=== PATIENT | female | born 1935 | race Caucasian/White ===

== ENCOUNTER 2024-12-13 18:59 | Emergency (ER) | payer MEDICARE, OTHER, SELFPAY ==
[2024-12-13 19:02] VITALS: BP 158/80; PULSE 79; TEMP 36.4; O2SAT 99; BMI 24.7
[2024-12-13 19:03] VITALS: O2SAT 99
--- NOTE | 2024-12-13 19:06 | ECG_ITS ---
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 Measurements Intervals [place] Rate: 75 P: -66 MN: 190 QRS: 21 QRSD: 88 T: 78 QT: 390 QTc: 418 Interpretive Statements ECTOPIC ATRIAL RHYTHM abnormal ECG No previous ECG available for comparison Electronically Signed On 12-14-2024 6:34:08 EDT by KENA CHURCHILL M.D.
--- NOTE | 2024-12-13 19:09 | ED.FALL1 ---
Documented by User: KYLIE Zamora 12/13/24 20:54 HPI HPI - Fall General Chief Complaint: Fall Stated Complaint: FALL Time Seen by Provider: 12/13/24 19:05 Source: patient Mode of arrival: ambulance History of Present Illness HPI Narrative: Patient is an 89-year-old female who presents to the ER for evaluation of injuries from a fall. Patient states she went to [facility] earlier today and was at the [facility] when she was walking and tripped falling striking her right elbow and face. She denies any loss of consciousness. Patient states she has felt shaky all day slightly off balance but denies any room spinning or dizziness. Patient has tenderness to the tip of her right elbow with an abrasion noted. She has a small abrasion to her left lower lip and left maxillary region where she fell. She has dentures and denies any intraoral pain. Patient denies any blood thinner use. She sees Dr. Jennie Ybarra in [place]. Patient states she did not eat breakfast or lunch today and only had 2 sips of her nonalcoholic beer before she tripped and fell. Patient arrived with c-collar in place but denies complaint of neck pain. Pt reports cardiac echo earlier in the year that Looked good. complaint: Reports fall Fall from: Reports standing Fall witnessed: Reports yes, by bystander Place fall occurred: Reports other ([facility]) Loss of consciousness: none Prolonged down time: Reports no Symptoms prior to fall: Reports none (Pt reports tripped on her feet. ) Context: Reports tripped/slipped Location of injury: Reports face and other (right Elbow) Location of injury - extremities: Right: elbow Severity: mild Quality: Reports aching Associated symptoms (after fall): Reports denies Related Data Home Medications ?Medication ?Instructions ?Recorded ?Confirmed atorvastatin 20 mg tablet 20 mg PO DAILY 12/13/24 12/13/24 bupropion HCl 300 mg 24 hr tablet, 300 mg PO DAILY 12/13/24 12/13/24 extended release diltiazem HCl 240 mg 240 mg PO DAILY 12/13/24 12/13/24 capsule,extended release 24 hr duloxetine 30 mg capsule,delayed 30 mg PO DAILY 12/13/24 12/13/24 release duloxetine 60 mg capsule,delayed 60 mg PO DAILY 12/13/24 12/13/24 release magnesium oxide 400 mg (241.3 mg 400 mg PO DAILY 12/13/24 12/13/24 magnesium) tablet Allergies Allergy/AdvReac Type Severity Reaction Status Date / Time Penicillins Allergy Unknown rash Verified 12/13/24 19:26 Opioid HPI Opioid Management Most Recent Pain and Opioid Data: Last Pain Scale 3 Today, 19:02 Review of Systems ROS Constitutional Denies: fever or chills Eyes Denies: change in vision or blurry vision Ears, nose, mouth, and throat Denies: throat pain, neck pain or throat swelling Cardiovascular Denies: chest pain or palpitations Respiratory Denies: shortness of breath or cough Gastrointestinal Denies: abdominal pain, nausea or vomiting Genitourinary Denies: painful urination or urinary frequency Musculoskeletal Reports: extremity pain (right elbow pain s/p fall); Denies: back pain or neck pain Integumentary/Breast Denies: rash, itching, redness or skin pain Neurological Denies: headache, numbness in extremities or weakness in extremities Psychiatric Denies: anxiety Allergic/Immunologic Denies: hives PFSH PFSH Social History Little interest or pleasure in doing things: not at all Feeling down, depressed, or hopeless: nearly every day Exam Narrative Exam Narrative: Nurses note and vital signs reviewed and patient is not hypoxic. General: The patient appears well and in no apparent distress. Patient is resting comfortably on cart. GCS = 15. Skin: Warm, dry, no pallor noted. Nonbleeding abrasion right elbow, small abrasion to left lower lip does not involve the vermilion border. The left maxillary area has a small abrasion overlying the mid lateral zygomatic process Head: Normocephalic, abrasion and swelling left maxilla. left lower lip. Neck: Supple, trachea mid-line, no tenderness, no lymphadenopathy. Full ROM and no cervical spinal tenderness. The patient has no step-offs or crepitus noted Eyes: PERRLA, EOMI, Pt report remote injury to optic nerve reflex ENT: TM's clear, no hemotympanum detected, no blood in posterior oropharynx, Dentures upper and lower. Cardiovascular: Regular Rate and Rhythm, 2+ SNOW Respiratory: Patient is in no distress, no accessory muscle use, lungs are clear to auscultation, no wheezing, rales or rhonchi Chest Wall: no tenderness, no flail chest, contusion, abrasion, or signs of trauma. Back: Back has no evidence of trauma, including contusion, abrasion, swelling or ecchymosis. The patient had no evidence of step-offs or creptitace noted. No tenderness to palpation. Negative straight leg raise bilaterally. Musculoskeletal: normal ROM, only localized tenderness to right olecranon process, no swelling. Pulses at femoral, DP, PT, and popiteal were 2+ bilaterally. Moves all four extremities in all modalities with 5/5 strength. GI: Normal bowel sounds, no tenderness to palpation, no masses appreciated. No rebound, guarding, or rigidity noted. 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 Psychiatric: Cooperative Constitutional Vital Signs, click to edit/add: Last Vital Signs Temp 97.5 F L 12/13/24 19:02 Pulse 79 12/13/24 19:02 Resp 18 12/13/24 19:02 BP 148/75 H 12/13/24 19:13 Pulse Ox 98 12/13/24 19:13 O2 Del Method Room Air 12/13/24 19:02 Course Vital Signs Vital signs: Vital Signs Temperature 97.5 F L 12/13/24 19:02 Pulse Rate 79 12/13/24 19:02 Respiratory Rate 18 12/13/24 19:02 Blood Pressure 158/80 H 12/13/24 19:02 Pulse Oximetry 99 12/13/24 19:02 Oxygen Delivery Method Room Air 12/13/24 19:02 Temperature 97.5 F L 12/13/24 19:02 Pulse Rate 79 12/13/24 19:02 Respiratory Rate 18 12/13/24 19:02 Blood Pressure 148/75 H 12/13/24 19:13 Pulse Oximetry 98 12/13/24 19:13 Oxygen Delivery Method Room Air 12/13/24 19:02 MDM - Fall MDM Narrative Medical decision making narrative: Patient presents EMS with c-collar she has no cervical spine tenderness and denies any radicular pain into her upper extremities. She has a isolated facial injury from fall on the left maxillary area dentures noted without evidence of fracture. c-collar removed. Patient agreeable to imaging studies to evaluate her injuries we discussed her feeling shaky all day and discussed that she had not eaten. Patient states some days food does not taste good and she was waiting to eat at the [facility]. Patient given 1 L IV fluids. Tetanus shot was updated and bacitracin applied to abrasions. Lab Data Labs: Lab Results 12/13/24 12/13/24 Range/Units 19:15 20:20 WBC 9.0 (4.0-11.0) 10^3/uL RBC 3.51 L (4.20-5.40) 10^6/uL Hgb 11.4 L (12.0-16.0) g/dL Hct 34.1 L (36.0-48.0) % MCV 97.2 (81.0-99.0) fL MCH 32.5 (26.7-34.0) pg MCHC 33.4 (29.9-35.2) g/dL RDW 13.5 (11.0-15.0) % Plt Count 221 (150-450) 10^3/uL MPV 11.4 (9.5-13.5) fL Neut % (Auto) 76.2 H (43.0-75.0) % Lymph % (Auto) 15.7 L (20.5-60.0) % [place] % (Auto) 6.3 (1.7-12.0) % Eos % (Auto) 0.9 (0.9-7.0) % Baso % (Auto) 0.6 (0.2-2.0) % Neut # (Auto) 6.9 H (1.4-6.5) 10^3/uL Lymph # (Auto) 1.4 (1.2-3.8) 10^3/uL [place] # (Auto) 0.6 (0.3-0.8) 10^3/uL Eos # (Auto) 0.1 (0.0-0.7) 10^3/uL Baso # (Auto) 0.1 (0.0-0.1) 10^3/uL Abs Immat Gran (auto) 0.03 (0.00-0.03) 10^3/uL Imm/Tot Granulo (auto) 0.3 (0.0-0.5) % PT 10.7 (9.0-11.6) sec INR 1.01 APTT 23.4 (22.3-36.2) sec Sodium 141 (136-145) mmol/L Potassium 4.0 (3.5-5.1) mmol/L Chloride 103 (98-107) mmol/L Carbon Dioxide 29.4 (21.0-32.0) mmol/L Anion Gap 12.6 BUN 16.0 (7.0-18.0) mg/dL Creatinine 1.33 H (0.55-1.02) mg/dL Est GFR ( Amer) 46 L (>=60 mL/min/1.73m^2) Est GFR (Non-Af Amer) 38 L (>=60 mL/min/1.73m^2) BUN/Creatinine Ratio 12.0 Glucose 120 H (74-106) mg/dL Calcium 9.0 (8.5-10.1) mg/dL Total Bilirubin 1.2 H (0.2-1.0) mg/dL AST 20 (15-37) U/L ALT 20 (14-59) U/L Alkaline Phosphatase 59 (46-116) U/L Troponin I High Sens 10.6 (4.0-51.3) pg/mL Total Protein 6.6 (6.4-8.2) g/dL Albumin 3.6 (3.4-5.0) g/dL Globulin 3.0 g/dL Albumin/Globulin Ratio 1.2 Urine Color Yellow (YELLOW) Urine Clarity Sl cloudy (CLEAR) Urine pH 6.5 (5.0-9.0) Ur Specific [place] 1.020 (1.005-1.025) Urine Protein Trace (NEG/TRACE) mg/dL Urine Glucose (UA) Negative (NEGATIVE) mg/dL Urine Ketones Trace A (NEGATIVE) mg/dL Urine Occult Blood Negative (NEGATIVE) Urine Nitrite Negative (NEGATIVE) Urine Bilirubin Negative (NEGATIVE) Urine Urobilinogen 1.0 (0.2-1.0) EU/dL Ur Leukocyte Esterase Negative (NEGATIVE) Urine RBC 0-2 (0-2) #/HPF Urine WBC 0-2 A (NONE SEEN) #/HPF Ur Squamous Epith Cells Moderate A (NONE/RARE) #/LPF Urine Crystals None seen (None Seen) #/HPF Amorphous Sediment Moderate Urine Bacteria Trace A (NONE SEEN) #/HPF Urine Casts Seen A (NONE SEEN) #/LPF Hyaline Casts Many Urine Mucus Moderate A (NONE SEEN) Ur Culture Indicated? No Imaging Data right elbow 3 view: Attestation: I personally reviewed and interpreted this imaging study as follows: My impression: Minimal degenerative changes no acute fracture no dislocation, radiopaque structure appears to be related to IV placement, no effusion ECG Data Attestation: I personally reviewed and interpreted this ECG as follows: Interpretation: EKG interpretation: Emergency Department physician interpretation, normal sinus rhythm 75 bpm, No ST segment elevation, normal axis. Discharge Plan Discharge Chief Complaint: Fall Clinical Impression: Closed head injury, Abrasion of face, Contusion of right elbow, Contusion of face Patient Disposition: Home, Self-Care Prescriptions / Home Meds: No Action atorvastatin 20 mg tablet 20 mg PO DAILY bupropion HCl 300 mg tablet extended release 24 hr 300 mg PO DAILY diltiazem HCl 240 mg capsule,extended release 24hr 240 mg PO DAILY duloxetine 30 mg capsule,delayed release(DR/EC) 30 mg PO DAILY duloxetine 60 mg capsule,delayed release(DR/EC) 60 mg PO DAILY magnesium oxide 400 mg (241.3 mg magnesium) tablet 400 mg PO DAILY Rx Instructions: with dinner Print Language: Mohawk Instructions: Head Injury (ED), Contusion in Adults (ED), Facial Contusion (ED) Additional Instructions: follow up with your family doctor Referrals: Physician,Non-Staff, [Physician] - 1 week Documented by User: Bhupinder Levine MD 12/13/24 22:30 HPI HPI - Fall General Chief Complaint: Fall Stated Complaint: FALL Time Seen by Provider: 12/13/24 19:05 Related Data Home Medications ?Medication ?Instructions ?Recorded ?Confirmed atorvastatin 20 mg tablet 20 mg PO DAILY 12/13/24 12/13/24 bupropion HCl 300 mg 24 hr tablet, 300 mg PO DAILY 12/13/24 12/13/24 extended release diltiazem HCl 240 mg 240 mg PO DAILY 12/13/24 12/13/24 capsule,extended release 24 hr duloxetine 30 mg capsule,delayed 30 mg PO DAILY 12/13/24 12/13/24 release duloxetine 60 mg capsule,delayed 60 mg PO DAILY 12/13/24 12/13/24 release magnesium oxide 400 mg (241.3 mg 400 mg PO DAILY 12/13/24 12/13/24 magnesium) tablet Allergies Allergy/AdvReac Type Severity Reaction Status Date / Time Penicillins Allergy Unknown rash Verified 12/13/24 19:26 Opioid HPI Opioid Management Most Recent Pain and Opioid Data: Last Pain Scale 3 Today, 19:02 PFSH PFSH Social History Little interest or pleasure in doing things: not at all Feeling down, depressed, or hopeless: nearly every day Exam Constitutional Vital Signs, click to edit/add: Last Vital Signs Temp 97.5 F L 12/13/24 19:02 Pulse 79 12/13/24 19:02 Resp 18 12/13/24 19:02 BP 148/75 H 12/13/24 19:13 Pulse Ox 98 12/13/24 19:13 O2 Del Method Room Air 12/13/24 19:02 Course Vital Signs Vital signs: Vital Signs Temperature 97.5 F L 12/13/24 19:02 Pulse Rate 79 12/13/24 19:02 Respiratory Rate 18 12/13/24 19:02 Blood Pressure 158/80 H 12/13/24 19:02 Pulse Oximetry 99 12/13/24 19:02 Oxygen Delivery Method Room Air 12/13/24 19:02 Temperature 97.5 F L 12/13/24 19:02 Pulse Rate 79 12/13/24 19:02 Respiratory Rate 18 12/13/24 19:02 Blood Pressure 148/75 H 12/13/24 19:13 Pulse Oximetry 98 12/13/24 19:13 Oxygen Delivery Method Room Air 12/13/24 19:02 MDM - Fall MDM Narrative Medical decision making narrative: Patient presents EMS with c-collar she has no cervical spine tenderness and denies any radicular pain into her upper extremities. She has a isolated facial injury from fall on the left maxillary area dentures noted without evidence of fracture. c-collar removed. Patient agreeable to imaging studies to evaluate her injuries we discussed her feeling shaky all day and discussed that she had not eaten. Patient states some days food does not taste good and she was waiting to eat at the [facility]. Patient given 1 L IV fluids. Tetanus shot was updated and bacitracin applied to abrasions. care transferred at end of PA shift. CTs all neg for acute findings. Patient informed of the above and discharged home Lab Data Labs: Lab Results 12/13/24 12/13/24 Range/Units 19:15 20:20 WBC 9.0 (4.0-11.0) 10^3/uL RBC 3.51 L (4.20-5.40) 10^6/uL Hgb 11.4 L (12.0-16.0) g/dL Hct 34.1 L (36.0-48.0) % MCV 97.2 (81.0-99.0) fL MCH 32.5 (26.7-34.0) pg MCHC 33.4 (29.9-35.2) g/dL RDW 13.5 (11.0-15.0) % Plt Count 221 (150-450) 10^3/uL MPV 11.4 (9.5-13.5) fL Neut % (Auto) 76.2 H (43.0-75.0) % Lymph % (Auto) 15.7 L (20.5-60.0) % [place] % (Auto) 6.3 (1.7-12.0) % Eos % (Auto) 0.9 (0.9-7.0) % Baso % (Auto) 0.6 (0.2-2.0) % Neut # (Auto) 6.9 H (1.4-6.5) 10^3/uL Lymph # (Auto) 1.4 (1.2-3.8) 10^3/uL [place] # (Auto) 0.6 (0.3-0.8) 10^3/uL Eos # (Auto) 0.1 (0.0-0.7) 10^3/uL Baso # (Auto) 0.1 (0.0-0.1) 10^3/uL Abs Immat Gran (auto) 0.03 (0.00-0.03) 10^3/uL Imm/Tot Granulo (auto) 0.3 (0.0-0.5) % PT 10.7 (9.0-11.6) sec INR 1.01 APTT 23.4 (22.3-36.2) sec Sodium 141 (136-145) mmol/L Potassium 4.0 (3.5-5.1) mmol/L Chloride 103 (98-107) mmol/L Carbon Dioxide 29.4 (21.0-32.0) mmol/L Anion Gap 12.6 BUN 16.0 (7.0-18.0) mg/dL Creatinine 1.33 H (0.55-1.02) mg/dL Est GFR ( Amer) 46 L (>=60 mL/min/1.73m^2) Est GFR (Non-Af Amer) 38 L (>=60 mL/min/1.73m^2) BUN/Creatinine Ratio 12.0 Glucose 120 H (74-106) mg/dL Calcium 9.0 (8.5-10.1) mg/dL Total Bilirubin 1.2 H (0.2-1.0) mg/dL AST 20 (15-37) U/L ALT 20 (14-59) U/L Alkaline Phosphatase 59 (46-116) U/L Troponin I High Sens 10.6 (4.0-51.3) pg/mL Total Protein 6.6 (6.4-8.2) g/dL Albumin 3.6 (3.4-5.0) g/dL Globulin 3.0 g/dL Albumin/Globulin Ratio 1.2 Urine Color Yellow (YELLOW) Urine Clarity Sl cloudy (CLEAR) Urine pH 6.5 (5.0-9.0) Ur Specific [place] 1.020 (1.005-1.025) Urine Protein Trace (NEG/TRACE) mg/dL Urine Glucose (UA) Negative (NEGATIVE) mg/dL Urine Ketones Trace A (NEGATIVE) mg/dL Urine Occult Blood Negative (NEGATIVE) Urine Nitrite Negative (NEGATIVE) Urine Bilirubin Negative (NEGATIVE) Urine Urobilinogen 1.0 (0.2-1.0) EU/dL Ur Leukocyte Esterase Negative (NEGATIVE) Urine RBC 0-2 (0-2) #/HPF Urine WBC 0-2 A (NONE SEEN) #/HPF Ur Squamous Epith Cells Moderate A (NONE/RARE) #/LPF Urine Crystals None seen (None Seen) #/HPF Amorphous Sediment Moderate Urine Bacteria Trace A (NONE SEEN) #/HPF Urine Casts Seen A (NONE SEEN) #/LPF Hyaline Casts Many Urine Mucus Moderate A (NONE SEEN) Ur Culture Indicated? No Discharge Plan Discharge Chief Complaint: Fall Clinical Impression: Closed head injury, Abrasion of face, Contusion of right elbow, Contusion of face Patient Disposition: Home, Self-Care Prescriptions / Home Meds: No Action atorvastatin 20 mg tablet 20 mg PO DAILY bupropion HCl 300 mg tablet extended release 24 hr 300 mg PO DAILY diltiazem HCl 240 mg capsule,extended release 24hr 240 mg PO DAILY duloxetine 30 mg capsule,delayed release(DR/EC) 30 mg PO DAILY duloxetine 60 mg capsule,delayed release(DR/EC) 60 mg PO DAILY magnesium oxide 400 mg (241.3 mg magnesium) tablet 400 mg PO DAILY Rx Instructions: with dinner Print Language: Mohawk Instructions: Head Injury (ED), Contusion in Adults (ED), Facial Contusion (ED) Additional Instructions: follow up with your family doctor Referrals: Physician,Non-Staff, [Physician] - 1 week
[2024-12-13 19:13] VITALS: BP 148/75; O2SAT 98
--- NOTE | 2024-12-13 19:24 | PC.NURSE ---
Abrasion and bruising to left side of face, abrasion to right elbow. Abrasion cleansed and bacitracin applied, ice pack given for facial swelling.
[2024-12-13 19:29] LABS: Basophils Absolute Auto 0.1 10^3/uL (0.0-0.1); Basophils Percent Auto 0.6 % (0.2-2.0); Eosinophils Absolute Auto 0.1 10^3/uL (0.0-0.7); Eosinophils Percent Auto 0.9 % (0.9-7.0); Hematocrit 34.1 % (36.0-48.0); Hemoglobin 11.4 g/dL (12.0-16.0); Immature Granulocytes Abs Auto 0.03 10^3/uL (0.00-0.03); Immature Granulocytes Pct Auto 0.3 % (0.0-0.5); Lymphocytes Absolute Auto 1.4 10^3/uL (1.2-3.8); Lymphocytes Percent Auto 15.7 % (20.5-60.0); Mean Corpuscular HGB Conc 33.4 g/dL (29.9-35.2); Mean Corpuscular Hemoglobin 32.5 pg (26.7-34.0); Mean Corpuscular Volume 97.2 fL (81.0-99.0); Mean Platelet Volume 11.4 fL (9.5-13.5); Monocytes Absolute Auto 0.6 10^3/uL (0.3-0.8); Monocytes Percent Auto 6.3 % (1.7-12.0); Neutrophils Absolute Auto 6.9 10^3/uL (1.4-6.5); Neutrophils Percent Auto 76.2 % (43.0-75.0); Platelet Count 221 10^3/uL (150-450); Red Blood Count 3.51 10^6/uL (4.20-5.40); Red Cell Distribution Width 13.5 % (11.0-15.0)
[2024-12-13] MEDS: 0.9 % SODIUM CHLORIDE 1,000 ML 999 ML IV (19:32)
[2024-12-13] MEDS: BACITRACIN 0.9 GM PACKET 1 PACKET TOPICAL (19:32)
[2024-12-13] MEDS: ADACEL DIPH,PERTUSS(ACELL),TET VAC/PF 0.5 ML ADULT SYRINGE IM (19:32)
[2024-12-13 19:40] LABS: INR 1.01; Partial Thromboplastin Time 23.4 sec (22.3-36.2); Prothrombin Time 10.7 sec (9.0-11.6)
[2024-12-13 19:44] LABS: Alanine Aminotransferase 20 U/L (14-59); Albumin Globulin Ratio 1.2; Albumin Level 3.6 g/dL (3.4-5.0); Alkaline Phosphatase 59 U/L (46-116); Anion Gap 12.6; Aspartate Amino Transferase 20 U/L (15-37); Bilirubin Total 1.2 mg/dL (0.2-1.0); Carbon Dioxide 29.4 mmol/L (21.0-32.0); Chloride 103 mmol/L (98-107); Estimated GFR (African America 46 (>=60 mL/min/1.73m^2); Estimated GFR (Non-African Ame 38 (>=60 mL/min/1.73m^2); Glucose 120 mg/dL (74-106); Sodium 141 mmol/L (136-145); Total Protein 6.6 g/dL (6.4-8.2); Troponin I High Sensitivity 10.6 pg/mL (4.0-51.3)
[2024-12-13 21:00] LABS: Bilirubin Urine NEGATIVE (NEGATIVE); Blood Urine NEGATIVE (NEGATIVE); Clarity Urine SL CLOUDY (CLEAR); Color Urine YELLOW (YELLOW); Glucose Urine UA NEGATIVE (NEGATIVE); Ketones Urine TRACE mg/dL (NEGATIVE); Leukocyte Esterase Urine NEGATIVE (NEGATIVE); Nitrite Urine NEGATIVE (NEGATIVE); Protein Urine TRACE mg/dL (NEG/TRACE); pH Urine 6.5 (5.0-9.0)
[2024-12-13 21:08] LABS: Bacteria Urine TRACE #/HPF (NONE SEEN); RBC Urine 0-2 #/HPF (0-2); WBC Urine 0-2 #/HPF (NONE SEEN)
[2024-12-13 21:09] LABS: Amorphous Sediment Urine MODERATE; Cast Seen? SEEN #/LPF (NONE SEEN); Crystals Seen? None Seen #/HPF (None Seen); Hyaline Casts Urine MANY; Mucus Urine MODERATE (NONE SEEN); Squamous Epithelial Cell Urine MODERATE #/LPF (NONE/RARE); Urine Culture Indicated NO
== END 2024-12-13 23:21 | disposition home or self-care (01) ==
PROVIDERS: Personal Emergency Response Attendant; Emergency Provider Internal Medicine
DX: S09.8XXA Other specified injuries of head, initial encounter (principal); S50.311A Abrasion of right elbow, initial encounter; W01.0XXA Fall on same level from slipping, tripping and stumbling without subsequent striking against object, initial encounter; S00.511A Abrasion of lip, initial encounter; Z23 Encounter for immunization; S50.01XA Contusion of right elbow, initial encounter; S22.41XA Multiple fractures of ribs, right side, initial encounter for closed fracture
CPT/HCPCS: 36415; 70450; 70486; 72125; 73080; 80053; 81001; 84484; 85025; 85610; 85730; 90471; 90715; 93005; 99285

== ENCOUNTER 2024-12-14 10:08 | Inpatient (IN) | payer MEDICARE, OTHER, SELFPAY ==
[2024-12-14] VITALS (32 sets, daily range): BP systolic 129–160; BP diastolic 59–80; PULSE 76–102; TEMP 36.4–36.8; O2SAT 96–98; BMI 22.1; BMI 20.3
[2024-12-14 11:09] LABS: Alanine Aminotransferase 29 U/L (14-59); Albumin Globulin Ratio 1.2; Albumin Level 3.4 g/dL (3.4-5.0); Alkaline Phosphatase 62 U/L (46-116); Anion Gap 13.6; Aspartate Amino Transferase 28 U/L (15-37); BUN Creatinine Ratio 13.5; Bilirubin Total 1.3 mg/dL (0.2-1.0); Calcium 8.4 mg/dL (8.5-10.1); Carbon Dioxide 25.7 mmol/L (21.0-32.0); Chloride 104 mmol/L (98-107); Estimated GFR (African America 46 (>=60 mL/min/1.73m^2); Estimated GFR (Non-African Ame 38 (>=60 mL/min/1.73m^2); Globulin 2.9 g/dL; Glucose 162 mg/dL (74-106); Potassium 4.3 mmol/L (3.5-5.1); Sodium 139 mmol/L (136-145); Total Protein 6.3 g/dL (6.4-8.2)
--- NOTE | 2024-12-14 13:19 | ED.FALL1 ---
HPI HPI - Fall General Chief Complaint: Fall Stated Complaint: FALL Time Seen by Provider: 12/14/24 10:21 Source: patient Mode of arrival: Wheelchair History of Present Illness HPI Narrative: The patient is coming to the ER after she had a fall yesterday she initially did not remember that, she was brought to us by her family members for concern of her fall she also have bilateral upper extremity tremors and instability when walking, the patient initially did not mention if she hit her head or not and she did not remember that she that she was in the ER yesterday for the same complaint Patient lives by self she is complaining of right-sided chest wall pain in addition to lower back pain and pelvic pain Patient denies any other complaints of nausea vomiting or any other concerns Related Data Home Medications ?Medication ?Instructions ?Recorded ?Confirmed atorvastatin 20 mg tablet 20 mg PO DAILY 12/13/24 12/14/24 bupropion HCl 300 mg 24 hr tablet, 300 mg PO DAILY 12/13/24 12/14/24 extended release diltiazem HCl 240 mg 240 mg PO DAILY 12/13/24 12/14/24 capsule,extended release 24 hr duloxetine 30 mg capsule,delayed 30 mg PO DAILY 12/13/24 12/14/24 release duloxetine 60 mg capsule,delayed 60 mg PO DAILY 12/13/24 12/14/24 release magnesium oxide 400 mg (241.3 mg 400 mg PO DAILY 12/13/24 12/14/24 magnesium) tablet Allergies Allergy/AdvReac Type Severity Reaction Status Date / Time Penicillins Allergy Unknown rash Verified 12/13/24 19:26 Opioid HPI Opioid Management Most Recent Pain and Opioid Data: Last Pain Scale 3 12/13/24, 19:02 Review of Systems ROS Status of ROS 10 or more systems reviewed and unremarkable except as noted in history and below PFSH PFSH Social History Little interest or pleasure in doing things: not at all Feeling down, depressed, or hopeless: not at all Exam Narrative Exam Narrative: Nurses notes and vital signs reviewed and patient is not hypoxic. General: Well-appearing and in no apparent distress. Skin: Warm, dry, no pallor noted. No rash. Head: Normocephalic, atraumatic. Neck: Supple, non-tender. Cardiovascular: Regular Rate and Rhythm without murmur, gallop or rub. Respiratory: No accessory muscle use or respiratory distress. Lungs are clear to auscultation, no wheezing, rales or rhonchi Chest Wall: Right-sided chest wall pain mostly in the right side lower fifth into the 12 rib Back there is tenderness upon palpation of the sacral area there is no ecchymosis there is also tenderness on palpation of the lower lumbar level mostly intervertebral line Musculoskeletal: normal ROM, no calf or popliteal tenderness, no lower extremity edema/swelling There is a wound on the right hand small finger mostly at the palmar aspect at the proximal phalanx and it is only through the skin there is no exposure of the underlying structures, and the patient have some hair and foreign body in it, after it was clean it was only a flap of skin and superficial wound GI: Abdomen is soft, non-distended. Normal bowel sounds. No masses appreciated. No tenderness to palpation. No rebound, guarding, or rigidity noted. Neurological: A&O x4. No cranial nerve dysfunction observed. No truncal ataxia. Moves all extremities. There is a significant tremors in upper extremities seen with the patient is talking Constitutional Vital Signs, click to edit/add: Last Vital Signs Temp 97.6 F 12/14/24 10:12 Pulse 83 12/14/24 12:00 Resp 16 12/14/24 12:00 BP 141/59 12/14/24 10:14 Pulse Ox 98 12/14/24 10:14 Course Vital Signs Vital signs: Vital Signs Temperature 97.6 F 12/14/24 10:12 Pulse Rate 83 12/14/24 10:12 Respiratory Rate 16 12/14/24 10:12 Blood Pressure 141/59 12/14/24 10:12 Pulse Oximetry 98 12/14/24 10:12 Temperature 97.6 F 12/14/24 10:12 Pulse Rate 83 12/14/24 12:00 Respiratory Rate 16 12/14/24 12:00 Blood Pressure 141/59 12/14/24 10:14 Pulse Oximetry 98 12/14/24 10:14 MDM - Fall MDM Narrative Medical decision making narrative: The patient EKG in the ER showing sinus rhythm with a heart rate of [address] elevation or depression The patient had blood workup done yesterday no acute pathology detected and urinalysis showed no acute pathology as well Today's chemistry shows no changes since yesterday The patient had a tetanus booster yesterday after she was evaluated for the same injury There is a wound on the right hand small finger mostly at the palmar aspect at the proximal phalanx and it is only through the skin there is no exposure of the underlying structures, and the patient have some hair and foreign body in it, after it was clean it was only a flap of skin and superficial wound The patient CT of the abdomen pelvis showed that she have the 9,10.11.12 ribs broken on the right side in addition to mild sacral fracture On the x-ray the patient also might have the 7 and 8 th rib fx The patient had no pneumothorax she was admitted for further evaluation pain control and evaluation for the multiple falls. Currently the patient had no safe discharge and she needs a workup for possible parkinson Patient case discussed with and he agreed with above-mentioned plan Lab Data Labs: Lab Results 12/14/24 Range/Units 10:48 Sodium 139 (136-145) mmol/L Potassium 4.3 (3.5-5.1) mmol/L Chloride 104 (98-107) mmol/L Carbon Dioxide 25.7 (21.0-32.0) mmol/L Anion Gap 13.6 BUN 18.0 (7.0-18.0) mg/dL Creatinine 1.33 H (0.55-1.02) mg/dL Est GFR ( Amer) 46 L (>=60 mL/min/1.73m^2) Est GFR (Non-Af Amer) 38 L (>=60 mL/min/1.73m^2) BUN/Creatinine Ratio 13.5 Glucose 162 H (74-106) mg/dL Calcium 8.4 L (8.5-10.1) mg/dL Total Bilirubin 1.3 H (0.2-1.0) mg/dL AST 28 (15-37) U/L ALT 29 (14-59) U/L Alkaline Phosphatase 62 (46-116) U/L Total Protein 6.3 L (6.4-8.2) g/dL Albumin 3.4 (3.4-5.0) g/dL Globulin 2.9 g/dL Albumin/Globulin Ratio 1.2 Discharge Plan Discharge Chief Complaint: Fall Clinical Impression: Multiple fractures of ribs, Closed sacral fracture, Fall, Finger wound, simple, open, Coarse tremors Patient Disposition: Admitted As Inpatient Time of Disposition Decision: 13:19
--- NOTE | 2024-12-14 14:28 | ECG_ITS ---
The Test Date: 2024-12-14 Pat Name: RANYD QUINTANILLA Department: Room: 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 Measurements Intervals [place] Rate: 76 P: 34 SD: 180 QRS: 14 QRSD: 82 T: 90 QT: 390 QTc: 421 Interpretive Statements 1100 Sinus rhythm 0102 ARTIFACT PRESENT 9110 normal ECG Compared to ECG 12/13/2024 19:16:50 Ectopic atrial rhythm no longer present Electronically Signed On 12-14-2024 17:08:47 EDT by KENA CHURCHILL M.D.
[2024-12-14] MEDS: ENOXAPARIN SODIUM 30 MG/0.3 ML SYRINGE SUBQ (17:06)
[2024-12-14] MEDS: ACETAMINOPHEN 325 MG TABLET 650 MG PO (18:09)
[2024-12-15] VITALS (13 sets, daily range): BP systolic 118–169; BP diastolic 68–73; PULSE 74–93; TEMP 36.4–36.9; O2SAT 93–98; BMI 20.3
[2024-12-15] MEDS: ACETAMINOPHEN 325 MG TABLET 650 MG PO (00:50)
[2024-12-15 05:37] LABS: Basophils Percent Auto 0.2 % (0.2-2.0); Eosinophils Absolute Auto 0.1 10^3/uL (0.0-0.7); Eosinophils Percent Auto 0.9 % (0.9-7.0); Hematocrit 28.2 % (36.0-48.0); Hemoglobin 9.5 g/dL (12.0-16.0); Immature Granulocytes Abs Auto 0.03 10^3/uL (0.00-0.03); Immature Granulocytes Pct Auto 0.3 % (0.0-0.5); Lymphocytes Absolute Auto 1.3 10^3/uL (1.2-3.8); Lymphocytes Percent Auto 14.1 % (20.5-60.0); Mean Corpuscular HGB Conc 33.7 g/dL (29.9-35.2); Mean Corpuscular Hemoglobin 32.2 pg (26.7-34.0); Mean Corpuscular Volume 95.6 fL (81.0-99.0); Mean Platelet Volume 10.8 fL (9.5-13.5); Monocytes Percent Auto 10.1 % (1.7-12.0); Neutrophils Absolute Auto 7.1 10^3/uL (1.4-6.5); Neutrophils Percent Auto 74.4 % (43.0-75.0); Platelet Count 161 10^3/uL (150-450); Red Blood Count 2.95 10^6/uL (4.20-5.40); Red Cell Distribution Width 13.6 % (11.0-15.0); White Blood Count 9.5 10^3/uL (4.0-11.0)
[2024-12-15 05:54] LABS: Alanine Aminotransferase 29 U/L (14-59); Albumin Globulin Ratio 1.2; Albumin Level 3.1 g/dL (3.4-5.0); Alkaline Phosphatase 56 U/L (46-116); Anion Gap 11.3; Aspartate Amino Transferase 30 U/L (15-37); BUN Creatinine Ratio 15.2; Bilirubin Total 1.3 mg/dL (0.2-1.0); Calcium 8.7 mg/dL (8.5-10.1); Carbon Dioxide 27.5 mmol/L (21.0-32.0); Chloride 106 mmol/L (98-107); Estimated GFR (African America 56 (>=60 mL/min/1.73m^2); Estimated GFR (Non-African Ame 46 (>=60 mL/min/1.73m^2); Globulin 2.6 g/dL; Glucose 107 mg/dL (74-106); Potassium 3.8 mmol/L (3.5-5.1); Sodium 141 mmol/L (136-145); Total Protein 5.7 g/dL (6.4-8.2)
--- NOTE | 2024-12-15 06:30 | P.HP_ITS ---
HPI H&P: HPI History of Present Illness Chief complaint: FALL, MULTIPLE RIB FX, SACRAL FX Narrative: Patient with a fall, she describes it happening several days prior to admission, was getting up out of her chair the chair slipped backwards and she fell, drove herself home after that there was no loss of consciousness, with pain increasing she presented to emergency room x 2, second time pain which is persisting, CT scan at that time showed 9 through 12th rib fractures on the right and sacral fracture Opioid HPI Opioid Management Most Recent Pain and Opioid Data: Last Pain Scale 5 Today, 09:34 Last Pain Assessment 12/14/24, 14:33 Last MAR Pain Assessment 12/14/24, 18:09 Last ORT Total Score 2 12/14/24, 14:33 Last ORT Risk Category Low Risk 12/14/24, 14:33 Review of Systems ROS Status of ROS 10 or more systems reviewed and unremark able except as noted in history and below PFSH PFSH Medical History (Updated 12/14/24 @ 15:43 by Soco Little) Depression ?F32.A - Depression, unspecified (ICD-10) Hyperlipemia ?E78.5 - Hyperlipidemia, unspecified (ICD-10) Hypertension ?I10 - Essential (primary) hypertension (ICD-10) Surgical History (Updated 12/14/24 @ 15:38 by Soco Little) Hx of tonsillectomy ?Z90.89 - Acquired absence of other organs (ICD-10) H/O: hysterectomy ?Z90.710 - Acquired absence of both cervix and uterus (ICD-10) History of cholecystectomy ?Z90.49 - Acquired absence of other specified parts of digestive tract (ICD- 10) Family History (Updated 12/14/24 @ 15:39 by Soco Little) Grandmother Family history of cancer Social History (Updated 12/14/24 @ 15:41 by Soco Little) Within the past year, how often did you have a drink containing alcohol: 2-4 times a month Within the past year, how often did you have six or more drinks on one occasion: never Smoking status: Never smoker Second hand tobacco smoke exposure: No Non-prescribed substance use: denies use 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 Known occupational exposures/hazards: No Highest level of school completed/degree received: high school graduate Do you want help with school or training: No Are you now , , , , never or living with a partner: In a typical week, how many times do you talk on the telephone with family, friends, or neighbors: once per week How often do you get together with friends or relatives: once per week How often do you attend scientology or holiness services: 4 or more times per year Little interest or pleasure in doing things: not at all Feeling down, depressed, or hopeless: not at all Feel stressed/tense/nervous/anxious/difficulty sleeping: not at all Due to disability, difficulty making decisions: No Do you think of yourself as: straight/heterosexual Gender Identity: female Meds Home Medications and Allergies Home Medications ?Medication ?Instructions ?Recorded ?Confirmed ?Type atorvastatin 20 mg tablet 20 mg PO DAILY 12/13/2411/27 History bupropion HCl 300 mg 24 hr tablet, 300 mg PO DAILY 12/14/24 History extended release diltiazem HCl 240 mg 240 mg PO DAILY 12/13/24 History capsule,extended release 24 hr duloxetine 30 mg capsule,delayed 30 mg PO DAILY 12/14/24 History release duloxetine 60 mg capsule,delayed 60 mg PO DAILY 12/14/24 History release magnesium oxide 400 mg (241.3 mg 400 mg PO DAILY 12/1312/14/24 History magnesium) tablet Allergies Allergy/AdvReac Type Severity Reaction Status Date / Time Penicillins Allergy Unknown rash Verified 12/13/24 19:26 gentamicin AdvReac Severe Dizziness Verified 12/14/24 15:46 Exam Constitutional Vital Signs, click to edit/add: Last Vital Signs Temp 97.6 F 12/15/24 00:44 Pulse 89 12/15/24 00:44 Resp 20 12/15/24 00:44 BP 146/73 H 12/15/24 00:44 Pulse Ox 95 12/15/24 00:44 O2 Del Method Room Air 12/15/24 00:44 Documenting provider has reviewed patient's vital signs: yes Common normals: no apparent distress Chest Common normals: inspection of chest normal; palpation of chest abnormal (Tender to right rib area) Respiratory Common normals: normal respiratory effort and no retractions Cardio Common normals: regular rate and regular rhythm; murmurs detected (2/6 systolic ejection murmur) GI Common normals: Normal to inspection, nondistended, normoactive bowel sounds present Back & Pelvis Common normals: CVA tenderness (Tenderness low back) Results Labs Labs: Short CBC 12/15/24 Range/Units 05:30 WBC 9.5 (4.0-11.0) 10^3/uL Hgb 9.5 L (12.0-16.0) g/dL Hct 28.2 L (36.0-48.0) % Plt Count 161 (150-450) 10^3/uL BMP 12/14/24 12/15/24 10:48 05:30 Sodium 139 141 Potassium 4.3 3.8 Chloride 104 106 Carbon Dioxide 25.7 27.5 BUN 18.0 17.0 Creatinine 1.33 H 1.12 H Glucose 162 H 107 H Calcium 8.4 L 8.7 Liver Function 12/14/24 12/15/24 Range/Units 10:48 05:30 Total Bilirubin 1.3 H 1.3 H (0.2-1.0) mg/dL AST 28 30 (15-37) U/L ALT 29 29 (14-59) U/L Alkaline Phosphatase 62 56 (46-116) U/L Albumin 3.4 3.1 L (3.4-5.0) g/dL Assessment and Plan Assessment and Plan (1) Fall: (2) Closed sacral fracture: (3) Multiple fractures of ribs: (4) Depression: (5) Hyperlipemia: (6) Hypertension: Plan Admission findings: Patient with sinus tachycardia, elevated blood pressure on admission with secondary to pain secondary to 9 through 12th rib fractures on the right as well as sacral fracture, Status post fall without syncopal episode-Place patient on telemetry, may need Holter to rule out any other cardiac etiology but it sounds like it just a slip and fall, right sided rib fractures as well as sacral fracture-consult orth opedics for weightbearing status Iron deficiency anemia-monitor daily Mild elevation in creatinine-monitor daily Chronic hyperbilirubinemia-stable Hypercholesterolemia continue with home medications Depression-continue with home medications Hypomagnesemia-continue supplementation Admission status: Patient initially placed in observation but was still requiring analgesics for pain control, added IV Dilaudid as needed, consult to orthopedics for weightbearing status, medically necessary treatment to include IV pain medications will span 2 midnights. Inpatient status
[2024-12-15 07:06] LABS: Creatine Kinase 276 U/L (26-192); Creatine Kinase MB 2.61 ng/mL (<=3.60); Myoglobin 207 ng/mL (9-82); Troponin I High Sensitivity 16.9 pg/mL (4.0-51.3)
[2024-12-15 07:07] LABS: Magnesium 2.1 mg/dL (1.8-2.4); Thyroid Stimulating Hormone 1.374 uIU/mL (0.358-3.740)
--- NOTE | 2024-12-15 08:34 | CM.NOTE ---
Rounds made with Dr. Brian. Dr. Brian reviews plan of care and findings with Ms. Mcintyre. Ms. Mcintyre verbalizes understanding.
[2024-12-15] MEDS: DULOXETINE HCL 30 MG CAPSULE.DR PO (09:34)
[2024-12-15] MEDS: ACETAMINOPHEN 500 MG TABLET 1000 MG PO ×2 (09:34→19:51)
[2024-12-15] MEDS: DULOXETINE HCL 60 MG CAPSULE.DR PO (09:34)
[2024-12-15] MEDS: ENOXAPARIN SODIUM 30 MG/0.3 ML SYRINGE SUBQ (09:34)
[2024-12-15] MEDS: ATORVASTATIN CALCIUM 20 MG TABLET PO (09:34)
[2024-12-15] MEDS: MAGNESIUM OXIDE 400 MG TABLET PO (09:34)
[2024-12-15] MEDS: BUPROPION HCL 150 MG XL TABLET 24H 300 MG PO (09:34)
[2024-12-15] MEDS: DILTIAZEM HCL 240 MG CAP.ER.24H PO (09:38)
--- NOTE | 2024-12-15 10:37 | SWNOTE1 ---
Important Message from Medicare reviewed and discussed with patient. Pt. verbalized understanding and signed the form. Original given to patient and copy placed in patient?s chart.
--- NOTE | 2024-12-15 10:37 | SWNOTE1 ---
SW met with pt to discuss dc needs. Pt lives at home with her 6 cats. Pt does not use any DME at this time. Pt does have a walker at home, but unsure if it has wheels or not. Pt has a step to get in home and a few steps in breeze way to enter the home as well. Pt does not have any services coming in at this time. Physical therapy is recommending SNF at this time. Pt is unsure if she wants to do that. SW did talk to her about home health and SNF. Pt would like to see how she is doing tomorrow and make a decision. SW to follow as needed.
[2024-12-15 12:03] LABS: Basophils Percent Auto 0.4 % (0.2-2.0); Eosinophils Percent Auto 0.4 % (0.9-7.0); Hematocrit 30.8 % (36.0-48.0); Hemoglobin 10.3 g/dL (12.0-16.0); Immature Granulocytes Abs Auto 0.03 10^3/uL (0.00-0.03); Immature Granulocytes Pct Auto 0.3 % (0.0-0.5); Lymphocytes Absolute Auto 1.2 10^3/uL (1.2-3.8); Lymphocytes Percent Auto 11.3 % (20.5-60.0); Mean Corpuscular HGB Conc 33.4 g/dL (29.9-35.2); Mean Corpuscular Hemoglobin 32.3 pg (26.7-34.0); Mean Corpuscular Volume 96.6 fL (81.0-99.0); Mean Platelet Volume 10.4 fL (9.5-13.5); Monocytes Absolute Auto 0.8 10^3/uL (0.3-0.8); Monocytes Percent Auto 7.3 % (1.7-12.0); Neutrophils Absolute Auto 8.5 10^3/uL (1.4-6.5); Neutrophils Percent Auto 80.3 % (43.0-75.0); Platelet Count 175 10^3/uL (150-450); Red Blood Count 3.19 10^6/uL (4.20-5.40); Red Cell Distribution Width 13.5 % (11.0-15.0); White Blood Count 10.5 10^3/uL (4.0-11.0)
--- NOTE | 2024-12-15 15:04 | SWNOTE1 ---
SW received call from OT and he is recommending SNF and pt agreeable. SW spoke to pt about going to SNF. Pt is agreeable. Pt did ask about being able to go home or if she stayed at facility. SW did explain that she would stay at facility until she is strong enough to return home or when she meets her goals. Pt voiced understanding. SW provided pt with list from Medicare.gov. Pt is unsure at this time. Pt mentioned [facility], [facility], [facility], and [facility]. Pt was leaning towards [facility]. Pt voiced several times that she is very concerned about her 6 cats and if they are outside and who will feed them. SW did recommend calling neighbors to see if they would help. Pt is going to do this. SW and pt spoke about her sister as well. Her sister lives in [place] and she did not think she would be able to let cats out. SW offered to help call her sister/neighbors. Pt provided sister number. SW called and her sister was on her way. SW to meet with them. SW to discuss rehab with pt and sister.
--- NOTE | 2024-12-15 15:58 | PM.ORCN ---
History of Present Illness HPI Consult date: 12/15/24 Requesting physician: Casper Brian Chief complaint: Sacral pain Narrative: Patient is an 89-year-old female who had presented to the ED on 12/13 after a fall backwards at the [facility] where she was eating. She states that she fell backwards and missed the chair. She was evaluated on 12/13 for a head injury and was discharged home. She was brought back to the ER yesterday by family with concerns of antalgic gait after she had admitted to multiple falls. Orthopedics was consulted as a sacral fracture was noted on CT imaging obtained in the ED. Prior to this last fall patient did not use an ambulatory aid. Patient does live alone. She denies taking any anticoagulation or antiplatelet medications. She denies any bowel or bladder incontinence/retention beyond her baseline. She denies any saddle anesthesia. PFSH PFS Medical History (Updated 12/14/24 @ 15:43 by Soco Little) Depression ?F32.A - Depression, unspecified (ICD-10) Hyperlipemia ?E78.5 - Hyperlipidemia, unspecified (ICD-10) Hypertension ?I10 - Essential (primary) hypertension (ICD-10) Surgical History (Updated 12/14/24 @ 15:38 by Soco Little) Hx of tonsillectomy ?Z90.89 - Acquired absence of other organs (ICD-10) H/O: hysterectomy ?Z90.710 - Acquired absence of both cervix and uterus (ICD-10) History of cholecystectomy ?Z90.49 - Acquired absence of other specified parts of digestive tract (ICD-10) Family History (Updated 12/14/24 @ 15:39 by Soco Little) Grandmother Family history of cancer Social History (Updated 12/14/24 @ 15:41 by Soco Little) Within the past year, how often did you have a drink containing alcohol: 2-4 times a month Within the past year, how often did you have six or more drinks on one occasion: never Smoking status: Never smoker Second hand tobacco smoke exposure: No Non-prescribed substance use: denies use 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 Known occupational exposures/hazards: No Highest level of school completed/degree received: high school graduate Do you want help with school or training: No Are you now , , , , never or living with a partner: In a typical week, how many times do you talk on the telephone with family, friends, or neighbors: once per week How often do you get together with friends or relatives: once per week How often do you attend protestant or jewish services: 4 or more times per year Little interest or pleasure in doing things: not at all Feeling down, depressed, or hopeless: not at all Feel stressed/tense/nervous/anxious/difficulty sleeping: not at all Due to disability, difficulty making decisions: No Do you think of yourself as: straight/heterosexual Gender Identity: female Meds Home Medications and Allergies Home Medications ?Medication ?Instructions ?Recorded ?Confirmed ?Type atorvastatin 20 mg tablet 20 mg PO DAILY 12/13/24 12/14/24 History bupropion HCl 300 mg 24 hr tablet, 300 mg PO DAILY 12/13/24 12/14/24 History extended release diltiazem HCl 240 mg 240 mg PO DAILY 12/13/24 12/14/24 History capsule,extended release 24 hr duloxetine 30 mg capsule,delayed 30 mg PO DAILY 12/13/24 12/14/24 History release duloxetine 60 mg capsule,delayed 60 mg PO DAILY 12/13/24 12/14/24 History release magnesium oxide 400 mg (241.3 mg 400 mg PO DAILY 12/13/24 12/14/24 History magnesium) tablet Allergies Allergy/AdvReac Type Severity Reaction Status Date / Time Penicillins Allergy Unknown rash Verified 12/13/24 19:26 gentamicin AdvReac Severe Dizziness Verified 12/14/24 15:46 Exam Narrative Exam Narrative: On exam patient is in no distress, age-appropriate, alert and oriented x 3. On inspection of the sacral area skin is intact, no erythema, no warmth to touch. Ecchymosis and hematoma present right paraspinal thoracic/lumbar area. There is tenderness with palpation of the sacrum. 5/5 strength bilateral lower extremities. Sensation is intact distally with light touch bilaterally. Constitutional Vital Signs, click to edit/add: Last Vital Signs Temp 98.4 F 12/15/24 07:59 Pulse 89 12/15/24 14:00 Resp 18 12/15/24 07:59 BP 169/72 H 12/15/24 07:59 Pulse Ox 98 12/15/24 10:35 O2 Del Method Room Air 05/19/25 10:35 Results Labs Labs: Abnormal lab results 12/15/24 12/15/24 Range/Units 05:30 11:58 RBC 2.95 L 3.19 L (4.20-5.40) 10^6/uL Hgb 9.5 L 10.3 L (12.0-16.0) g/dL Hct 28.2 L 30.8 L (36.0-48.0) % Neut % (Auto) 80.3 H (43.0-75.0) % Lymph % (Auto) 14.1 L 11.3 L (20.5-60.0) % Eos % (Auto) 0.4 L (0.9-7.0) % Neut # (Auto) 7.1 H 8.5 H (1.4-6.5) 10^3/uL [place] # (Auto) 1.0 H (0.3-0.8) 10^3/uL Creatinine 1.12 H (0.55-1.02) mg/dL Est GFR ( Amer) 56 L (>=60 mL/min/1.73m^2) Est GFR (Non-Af Amer) 46 L (>=60 mL/min/1.73m^2) Glucose 107 H (74-106) mg/dL Total Bilirubin 1.3 H (0.2-1.0) mg/dL Total Creatine Kinase 276 H (26-192) U/L Myoglobin 207 H (9-82) ng/mL Total Protein 5.7 L (6.4-8.2) g/dL Albumin 3.1 L (3.4-5.0) g/dL H & H 12/15/24 12/15/24 Range/Units 05:30 11:58 Hgb 9.5 L 10.3 L (12.0-16.0) g/dL Hct 28.2 L 30.8 L (36.0-48.0) % All other labs normal. Assessment and Plan Assessment and Plan (1) Fall: (2) Closed sacral fracture: Assessment and Plan: CT scan of the pelvis was reviewed by myself and fracture is hard to visualize, there is no displacement of the sacrum. - Will treat nonoperatively with pain control and physical therapy - Weightbearing as tolerated with walker - PT evaluation - Follow-up with Dr. Neves in 4 weeks Plan discussed and agreed upon by my supervising physician, Dr. Neves (3) Multiple fractures of ribs: (4) Depression: (5) Hyperlipemia: (6) Hypertension:
--- NOTE | 2024-12-15 16:11 | SWNOTE1 ---
SW met with pt, sister, and brother in law. We discussed the recommendations of rehab. They are in agreement. Pt would like [facility]. Pt did ask some questions several times. She asked if she was able to leave the facility or does she have to stay there. She also asked about stopping to check on her cats a few times. Pt showing some signs of confusion. Pt is aware of where she is now and is still alert and oriented, just repeated questions. Referral sent to [facility]. Referral included face sheet, ED note, H&P, provider notes, case management report, nursing notes, diagnostic imaging, med list, and PT/OT notes.
--- NOTE | 2024-12-15 17:30 | DIETREC ---
Recommend 237 mL Ensure Original TID w/meals. [place] text to Dr. Brian.
[2024-12-16] VITALS (9 sets, daily range): BP systolic 135–167; BP diastolic 75–76; PULSE 79–91; TEMP 36.4–36.8; O2SAT 96–98
[2024-12-16] MEDS: ACETAMINOPHEN 500 MG TABLET 1000 MG PO (05:19)
[2024-12-16 05:35] LABS: Basophils Percent Auto 0.3 % (0.2-2.0); Eosinophils Absolute Auto 0.1 10^3/uL (0.0-0.7); Eosinophils Percent Auto 1.3 % (0.9-7.0); Hematocrit 30.3 % (36.0-48.0); Hemoglobin 9.9 g/dL (12.0-16.0); Immature Granulocytes Abs Auto 0.03 10^3/uL (0.00-0.03); Immature Granulocytes Pct Auto 0.4 % (0.0-0.5); Lymphocytes Absolute Auto 1.5 10^3/uL (1.2-3.8); Lymphocytes Percent Auto 20.6 % (20.5-60.0); Mean Corpuscular HGB Conc 32.7 g/dL (29.9-35.2); Mean Corpuscular Hemoglobin 31.6 pg (26.7-34.0); Mean Corpuscular Volume 96.8 fL (81.0-99.0); Mean Platelet Volume 11.2 fL (9.5-13.5); Monocytes Absolute Auto 0.8 10^3/uL (0.3-0.8); Monocytes Percent Auto 11.1 % (1.7-12.0); Neutrophils Absolute Auto 4.9 10^3/uL (1.4-6.5); Neutrophils Percent Auto 66.3 % (43.0-75.0); Platelet Count 169 10^3/uL (150-450); Red Blood Count 3.13 10^6/uL (4.20-5.40); Red Cell Distribution Width 13.5 % (11.0-15.0); White Blood Count 7.4 10^3/uL (4.0-11.0)
[2024-12-16 06:01] LABS: Alanine Aminotransferase 26 U/L (14-59); Alkaline Phosphatase 52 U/L (46-116); Anion Gap 12.2; Aspartate Amino Transferase 26 U/L (15-37); BUN Creatinine Ratio 17.4; Bilirubin Total 0.9 mg/dL (0.2-1.0); Calcium 8.6 mg/dL (8.5-10.1); Carbon Dioxide 28.3 mmol/L (21.0-32.0); Chloride 106 mmol/L (98-107); Estimated GFR (African America >60 (>=60 mL/min/1.73m^2); Estimated GFR (Non-African Ame >60 (>=60 mL/min/1.73m^2); Globulin 2.9 g/dL; Glucose 98 mg/dL (74-106); Potassium 3.5 mmol/L (3.5-5.1); Sodium 143 mmol/L (136-145); Total Protein 5.9 g/dL (6.4-8.2)
[2024-12-16 06:09] LABS: Creatine Kinase 186 U/L (26-192); Myoglobin 104 ng/mL (9-82); Troponin I High Sensitivity 13.7 pg/mL (4.0-51.3)
--- NOTE | 2024-12-16 06:49 | P.PN_ITS ---
Progress Note: Subjective Subjective Interval history: Pain fairly well-controlled, not using her PEEP much Exam Constitutional Vital Signs, click to edit/add: Last Vital Signs Temp 97.5 F L 12/16/24 05:23 Pulse 79 12/16/24 06:00 Resp 18 12/16/24 05:23 BP 167/75 H 12/16/24 05:23 Pulse Ox 96 12/16/24 05:23 O2 Del Method Room Air 12/16/24 05:23 Documenting provider has reviewed patient's vital signs: yes Common normals: no apparent distress Chest Common normals: inspection of chest normal; palpation of chest abnormal (Tender to right rib area) Respiratory Common normals: normal respiratory effort, no retractions and clear to auscultation bilaterally Cardio Common normals: regular rate and regular rhythm; murmurs detected (2/6 systolic ejection murmur) GI Common normals: Normal to inspection, nondistended, normoactive bowel sounds present Back & Pelvis Common normals: CVA tenderness (Tenderness low back) Progress Note: Objective Labs Labs: Short CBC 12/15/24 12/16/24 Range/Units 11:58 05:23 WBC 10.5 7.4 (4.0-11.0) 10^3/uL Hgb 10.3 L 9.9 L (12.0-16.0) g/dL Hct 30.8 L 30.3 L (36.0-48.0) % Plt Count 175 169 (150-450) 10^3/uL BMP 12/16/24 05:23 Sodium 143 Potassium 3.5 Chloride 106 Carbon Dioxide 28.3 BUN 15.0 Creatinine 0.86 Glucose 98 Calcium 8.6 Cardiac Enzymes 12/15/24 12/16/24 Range/Units 05:30 05:23 Total Creatine Kinase 276 H 186 (26-192) U/L CK-MB (CK-2) 2.61 2.50 (<=3.60) ng/mL Liver Function 12/16/24 Range/Units 05:23 Total Bilirubin 0.9 (0.2-1.0) mg/dL AST 26 (15-37) U/L ALT 26 (14-59) U/L Alkaline Phosphatase 52 (46-116) U/L Albumin 3.0 L (3.4-5.0) g/dL Progress Note: A&P Assessment and Plan (1) Fall: (2) Closed sacral fracture: (3) Multiple fractures of ribs: (4) Depression: (5) Hyperlipemia: (6) Hypertension: Plan Admission findings: Patient with sinus tachycardia, elevated blood pressure on admission with secondary to pain secondary to 9 through 12th rib fractures on the right as well as sacral fracture, Status post fall without syncopal episode X 2-telemetry so far unremarkable, lab results are improving, still difficulty ambulating and poor balance secondary to pain, rehab working with patient Acute rhabdomyolysis with elevation in CPK and myoglobin-improved, myoglobin almost to baseline CPK is back to baseline Iron deficiency anemia-monitor daily Mild elevation in creatinine-monitor daily Severe protein calorie malnutrition-diet supplement Chronic hyperbilirubinemia-improved to normal Hypercholesterolemia continue with home medications Depression-continue with home medications Hypomagnesemia-continue supplementation Admission status: Patient initially placed in observation but was still requiring analgesics for pain control, added IV Dilaudid as needed, consult to orthopedics for weightbearing status, medically necessary treatment to include IV pain medications will span 2 midnights. Inpatient status
--- NOTE | 2024-12-16 08:14 | CM.NOTE ---
Rounds made with Dr. Brian. Dr. Brian reviews plan of care. Continue with PT/OT. No discharge today.
[2024-12-16] MEDS: ATORVASTATIN CALCIUM 20 MG TABLET PO (08:37)
[2024-12-16] MEDS: DILTIAZEM HCL 240 MG CAP.ER.24H PO (08:37)
[2024-12-16] MEDS: ENOXAPARIN SODIUM 30 MG/0.3 ML SYRINGE SUBQ (08:37)
[2024-12-16] MEDS: BUPROPION HCL 150 MG XL TABLET 24H 300 MG PO (08:37)
[2024-12-16] MEDS: DULOXETINE HCL 30 MG CAPSULE.DR PO (08:37)
[2024-12-16] MEDS: MAGNESIUM OXIDE 400 MG TABLET PO (08:37)
[2024-12-16] MEDS: DULOXETINE HCL 60 MG CAPSULE.DR PO (08:37)
--- NOTE | 2024-12-16 09:42 | SWNOTE1 ---
SW stopped in and spoke to pt. Pt was able to reach out to her neighbor and cleaning lady. They have accounted for 4 of her cats, she voiced 2 may be outside. SW and pt spoke about rehab again. SW let pt know that [facility] is able to accept once she is ready for discharge. Pt did ask when she is able to go? SW advised if pt medically needs to be here tomorrow, then would be earliest discharge. Pt did ask if she can decided to leave once she is there. SW advised that she is not held prisoner there and if she decides she wants to return home, she can. SW let her know that she will have a care team there that will discuss her goals and assist with her stay and discharge. Pt voiced understanding. SW to stop back later today or tomorrow. SW spoke to case management and physical therapy stopped in and pt did well and went 250 feet and completed stairs, unsure if pt qualifies for SNF at this time. SW to send PT note to Joyce at [facility].
[2024-12-16] MEDS: ENSURE ORIGINAL 237 ML BOTTLE PO (09:45)
--- NOTE | 2024-12-16 10:19 | P.DS_ITS ---
DS: Providers Provider Date of admission: 12/15/24 08:57 Primary care physician: Idalmis Ybarra DO Consults: 12/14/24 Consult to Dietitian Routine Reason for consultation: Weight Loss 12/14/24 15:39 Occupational Therapy Eval and Treat Routine Reason for consultation: Ambulatory dysfunction/weakness Physical Therapy Eval and Treat Routine Reason for consultation: Ambulatory dysfunction/weakness 12/15/24 08:41 Consult to Orthopedic Surgery Routine Consulting Provider: Sanket Barr Reason For Exam: Reason for consultation: Sacral and rib fx Has provider been notified: No DS: Diagnosis Discharge Diagnosis (1) Fall: (2) Closed sacral fracture: (3) Multiple fractures of ribs: (4) Depression: (5) Hyperlipemia: (6) Hypertension: Plan Admission findings: Patient with sinus tachycardia, elevated blood pressure on admission with secondary to pain secondary to 9 through 12th rib fractures on the right as well as sacral fracture, Status post fall without syncopal episode X 2-telemetry so far unremarkable, lab results are improving, still difficulty ambulating and poor balance secondary to pain, rehab working with patient Acute rhabdomyolysis with elevation in CPK and myoglobin-improved, myoglobin almost to baseline CPK is back to baseline Iron deficiency anemia-monitor daily Mild elevation in creatinine-monitor daily Severe protein calorie malnutrition-diet supplement Chronic hyperbilirubinemia-improved to normal Hypercholesterolemia continue with home medications Depression-continue with home medications Hypomagnesemia-continue supplementation Admission status: Patient initially placed in observation but was still requiring analgesics for pain control, added IV Dilaudid as needed, consult to orthopedics for weightbearing status, medically necessary treatment to include IV pain medications will span 2 midnights. Inpatient status ? DS: Summary Hospital Course Hospital Course: Patient was a fall x 2 at home in the last week prior to admission, seen in ER twice, second visit showed rib fractures multiple 9 through 12 as well as sacral fracture, patient difficulty ambulating secondary to pain requiring IV pain medications she was admitted to inpatient status after failing the initial observational time periuod. Consultation orthopedics, with the nondisplaced nature of her stable fracture they felt she could ambulate with walker, physical therapy worked with her and did not do great but yes today she has done much improved ambulate in the hallway safely and with a walker as an assistive device, also able to do steps, with the ability to have a walker at home, should be able to be discharged home in improving condition. Medications to this. Follow-up with her PCP within the next week. Per patient safety patient will need a rollator walker, she was shown how to use it here, this will improve her activities of daily living such as getting to, and after Time Spent with Patient Time attestation: Total time spent providing and/or coordinating discharge services: Exam Constitutional Vital Signs, click to edit/add: Last Vital Signs Temp 98.3 F 12/16/24 08:50 Pulse 84 12/16/24 09:50 Resp 16 12/16/24 08:50 BP 135/76 12/16/24 08:50 Pulse Ox 98 12/16/24 08:50 O2 Del Method Room Air 12/16/24 08:50 Documenting provider has reviewed patient's vital signs: yes Common normals: no apparent distress Chest Common normals: inspection of chest normal; palpation of chest abnormal (Tender to right rib area) Respiratory Common normals: normal respiratory effort, no retractions and clear to auscultation bilaterally Cardio Common normals: regular rate and regular rhythm; murmurs detected (2/6 systolic ejection murmur) GI Common normals: Normal to inspection, nondistended, normoactive bowel sounds present Back & Pelvis Common normals: CVA tenderness (Tenderness low back) DS: Data Data Completed and Pending Labs on day of discharge: Labs from last 24 hours 12/16/24 12/15/24 05:23 11:58 WBC 7.4 10.5 RBC 3.13 L 3.19 L Hgb 9.9 L 10.3 L Hct 30.3 L 30.8 L MCV 96.8 96.6 MCH 31.6 32.3 MCHC 32.7 33.4 RDW 13.5 13.5 Plt Count 169 175 MPV 11.2 10.4 Neut % (Auto) 66.3 80.3 H Lymph % (Auto) 20.6 11.3 L Maverick % (Auto) 11.1 7.3 Eos % (Auto) 1.3 0.4 L Baso % (Auto) 0.3 0.4 Neut # (Auto) 4.9 8.5 H Lymph # (Auto) 1.5 1.2 Maverick # (Auto) 0.8 0.8 Eos # (Auto) 0.1 0.0 Baso # (Auto) 0.0 0.0 Abs Immat Gran (auto) 0.03 0.03 Imm/Tot Granulo (auto) 0.4 0.3 Sodium 143 Potassium 3.5 Chloride 106 Carbon Dioxide 28.3 Anion Gap 12.2 BUN 15.0 Creatinine 0.86 Est GFR ( Amer) >60 Est GFR (Non-Af Amer) >60 BUN/Creatinine Ratio 17.4 Glucose 98 Calcium 8.6 Total Bilirubin 0.9 AST 26 ALT 26 Alkaline Phosphatase 52 Total Creatine Kinase 186 CK-MB (CK-2) 2.50 Myoglobin 104 H Troponin I High Sens 13.7 Total Protein 5.9 L Albumin 3.0 L Globulin 2.9 Albumin/Globulin Ratio 1.0 Discharge Plan Discharge Disposition: Home Health Service Discharge Medications: New acetaminophen 500 mg Tablet 1,000 mg PO Q6H PRN (Reason: Pain Scale 4-6) Qty: 100 11RF Ensure Original 0.04-1.05 gram-kcal/mL Liquid 1 ea PO BID Qty: 5688 0RF Continued atorvastatin 20 mg tablet 20 mg PO DAILY bupropion HCl 300 mg tablet extended release 24 hr 300 mg PO DAILY diltiazem HCl 240 mg capsule,extended release 24hr 240 mg PO DAILY duloxetine 30 mg capsule,delayed release(DR/EC) 30 mg PO DAILY duloxetine 60 mg capsule,delayed release(DR/EC) 60 mg PO DAILY magnesium oxide 400 mg (241.3 mg magnesium) tablet 400 mg PO DAILY Rx Instructions: with dinner Activity: ambulate only with your walker Diet: advance to your usual diet Print Language: Cape Verdean Patient Instructions: Rib Fracture (DC), Fall Prevention for Older Adults (DC), Abrasion (ED) Ammunition Assembly Ii Laborer/Overlock Waistline Joiner Instructions: Discharge with [facility], phone number is [phone]. They should contact within 48 hours of discharge Forms: Portal Instructions Follow Up Appointments: December 26 @ 11:30am with Dr. Ybarra [phone] Discharge Date/Time: 12/16/24 11:56
--- NOTE | 2024-12-16 11:09 | SWNOTE1 ---
IVETTE spoke to Joyce at [facility] and pt going 250 feet and steps, there therapy team will wonder why she came to rehab. SW spoke to pt and let her know that she did really well and that she did not qualify for rehab. Pt does feel like she is strong enough to return home and she is agreeable to have HH come in. Pt has no preference HH company. SW mentioned some Hh companies and she would like [facility]. IVETTE asked permission to call her sister and update her. IVETTE called sister, Elvia, and spoke to her in room. Elvia asked if she can come get her. IVETTE let her know that she will be ready around 12. IVETTE updated nurse. IVETTE did ask pt about a rollator for at home. Pt is in agreement. IVETTE sent script for doctor to sign for rollator. Referral sent to [facility]. Referral included face sheet, ED note, H&P, provider notes, case management report, and PT/OT notes.
--- NOTE | 2024-12-16 11:32 | SWNOTE1 ---
IVETTE spoke to pt's friend, Nae, who had offered to give pt a ride home. Nae works here at hospital and stopped in room earlier to see pt. IVETTE let her know that pt has a ride home and will be leaving today with HH services since she did so well with therapy. Nae did ask about life alert, IVETTE to provide to pt. Nae also concerned about pt eating at home. SW to provide pt with meals on wheels information as well. IVETTE provided pt with numbers for meals on wheels and also numbers for life alert buttons. Pt voiced appreciation. IVETTE advised that IVETTE is setting up [facility] HH and they should call within 48 hours of discharge. IVETTE also advised that IVETTE is working on rollator for patient as well. IVETTE let her know if she does discharge prior to IVETTE letting her know about rollator, SW will call her.
--- NOTE | 2024-12-16 12:08 | SWNOTE1 ---
IVETTE called [facility] and they are able to accept.
--- NOTE | 2024-12-16 13:25 | SWNOTE1 ---
SW faxed face sheet, face to face documentation, and script to [facility] for rollator.
--- NOTE | 2024-12-16 14:48 | SWNOTE1 ---
IVETTE spoke to Kiki at [facility] and her rollator is approved. Kiki will call pt to let her know.
--- NOTE | 2024-12-17 11:23 | CM.DCFOLLOWU ---
Person spoke with:patient How are you feeling?okay How is your pain?still having rib pain Did you understand your discharge instructions?yes Do you have any questions about your discharge instructions?no Were you given any prescriptions at discharge?yes Were you able to get your prescriptions filled?no, but will have neighbor flower buncher or picker today Do you understand how to take your medications as ordered?yes Do you have any questions about your follow up appointment and do you plan to keep your follow up appointment?no questions, aware of follow up Is there anything else that you would like to discuss?no Questions/Comments/Concerns/Other:none
== END 2024-12-16 11:56 | disposition home health service (06) | DRG 551 ==
LOC: ER 13:19 → MS 12-15 05:37
PROVIDERS: Internal Medicine; Admitting Provider Family Medicine; Emergency Provider Emergency Medicine; Visit Provider Family Medicine
DX: S32.10XA Unspecified fracture of sacrum, initial encounter for closed fracture (principal); E43 Unspecified severe protein-calorie malnutrition; S22.41XA Multiple fractures of ribs, right side, initial encounter for closed fracture; M62.82 Rhabdomyolysis; S00.83XA Contusion of other part of head, initial encounter; S50.01XA Contusion of right elbow, initial encounter; W01.0XXA Fall on same level from slipping, tripping and stumbling without subsequent striking against object, initial encounter; Z23 Encounter for immunization; Z79.899 Other long term (current) drug therapy; Z88.0 Allergy status to penicillin; Z88.8 Allergy status to other drugs, medicaments and biological substances; F32.A Depression, unspecified; I10 Essential (primary) hypertension; D50.9 Iron deficiency anemia, unspecified; E80.6 Other disorders of bilirubin metabolism; E78.00 Pure hypercholesterolemia, unspecified; E83.42 Hypomagnesemia; R29.6 Repeated falls; Z68.20 Body mass index [BMI] 20.0-20.9, adult
CPT/HCPCS: 36415; 70450; 70486; 71101; 72125; 73080; 74176; 80053; 81001; 82550; 82553; 83735; 83874; 84436; 84443; 84484; 85025; 85610; 85730; 87086; 90471; 90715; 93005; 94667; 94668; 94761; 96372; 97161; 97165; 97530; 97535; 99285; G0378; J1650

== ENCOUNTER 2025-02-09 23:52 | Observation (INO) | payer MEDICARE, OTHER, SELFPAY ==
[2025-02-09 23:56] VITALS: BP 112/56; PULSE 78; TEMP 36.4; O2SAT 97; BMI 17.9
[2025-02-09 23:57] VITALS: O2SAT 97
--- OUTSIDE RECORDS SUMMARY | 2025-02-09 23:58 | XMS_ITS | Encounter Summary ---
Author Organization [employer] Address [id number] [address] [place] [address] Care Team Providers Care Colorer Hides And Skins Name Role Phone Idalmis Ybarra Primary Care Provider [phone] Encounter Details Date Type Department Care Team (Late st Contact Info) Description 11/17/2024 Orders Only [facility] [address] [place] [address] External, Scanning Provider Social History Tobacco Use Types Packs/Day Years Used Date Smoking Tobacco: Never Smokeless Tobacco: Never Alcohol Use Standard Drinks/Week Comments Yes 0 (1 standard drink = 0.6 oz pur e alcohol) Childcare Answer Date Recorded Childcare Unknown 01/08/2019 Employment Answer Date Recorded Employment Unknown 01/08/2019 Hunger Screening Answer Date Recorded Within the past 12 months we worried whether our food would run out before we got money to buy more. Never True 11/14/2024 Within the past 12 months th e food we bought just didn't last and we didn't have money to get more. Never True 11/14/2024 Purpose - Life Answer Date Recorded Purpose and direction in life Unknown Comments Unknown Sex and Gender Information Value Date Recorded Sex Assigned at Female 06/26/2018 5:19 PM EST Legal Sex Female 11:29 AM EDT Gender Identity Female 06/26/2018 5:19 PM EST Sexual Orientation Straight 06/26/2018 5: 19 PM EST documented as of this encounter Plan of Treatment Not on file documented as of this encounter Procedures Procedure Name Priority Date/Time Associated Diagnosis Comments ECHO COMPLETE W CONTRAST Routine 08/25/2024 8:43 AM EST documented in this encounter Results * Echo complete W/ contrast (08/25/2024 8:43 AM EST) Anatomical Region Laterality Modality Chest N/A Ultrasound us Scanning Provider External CV ECHO ORDERABLES Fi nal Result documented in this encounter Visit Diagnoses Not on filedocumented in this encounter Care Teams Colorer Hides And Skins Relationship Specialty Start Date End Date Idalmis Ybarra DO [address] [place] [address] PCP - General Family Medicine 04/17/22 documented as of this encounter
--- OUTSIDE RECORDS SUMMARY | 2025-02-09 23:58 | XMS_ITS | Encounter Summary ---
Author Organization [facility] Address [id number] [address] [place] [address] Care Team Providers Care Net Web Application Developer Name Role Phone Idalmis Ybarra DO Primary Care Provider [phone] Reason for Visit * Reason Onset Date Comments Med Refill 05/23/2021 Encounter Details Date Type Department Care Team (Late st Contact Info) Description 05/23/2021 Refill [facility] [address] [place] [id number] Ivett Morillo, BERNARD Med Refill Social History Tobacco Use Types Packs/Day Years Used Date Smoking Tobacco: Never Smokeless Tobacco: Never Alcohol Use Standard Drinks/Week Comments Yes 0 (1 standard drink = 0.6 oz pur e alcohol) Childcare Answer Date Recorded Childcare Unknown 01/08/2019 Employment Answer Date Recorded Employment Unknown 01/08/2019 Purpose - Life Answer Date Recorded Purpose and direction in life Unknown Comments Unknown Sex and Gender Information Value Date Recorded Sex Assigned at Female 06/26/2018 5:19 PM EST Legal Sex Female 11:29 AM EDT Gender Identity Female 06/26/2018 5:19 PM EST Sexual Orientation Straight 06/26/2018 5: 19 PM EST COVID-19 Exposure Response Date Recorded In the last month, have you been in contact with someone who was confirmed or suspected to have Coronavirus / COVID-19? No / Unsure 05/24/2021 10:15 AM EDT documented as of this encounter Plan of Treatment Not on file documented as of this encounter Visit Diagnoses Diagnosis Hyperlipidemia, unspecified hyperlipidemia type- Primary documented in this encounter Care Teams Net Web Application Developer Relationship Specialty Start Date End Date Idalmis Ybarra DO [address] [place] [address] PCP - General Family Medicine 04/17/22 documented as of this encounter
--- OUTSIDE RECORDS SUMMARY | 2025-02-09 23:58 | XMS_ITS | Clinical Summary ---
Author Organization [facility] Address [address] [place] [address] Care Team Providers Care Tube Heater Name Role Phone Dania Be Iris WALKER Primary Care Provider [phone] Allergies Active Allergy Reactions Criticality Noted Date Comments Penicillins 05/07/2006 swelling,rash Medications TYLENOL 325 MG TAB as directed as needed by mouth 0 6 Active Laughlin-3 Fatty Acids-Vitamin E (FISH OIL) 1,000 mg cap Take 1 capsule by mouth once daily. Active Multivitamins-M inerals-Lutein (CENTRUM SILVER) tab Take 1 tablet by mouth once daily. Active coenzyme Q10 100 mg cap Take 100 mg by mouth once daily. Active CALCIUM CARBONATE (CALCIUM 600 ORAL) Take 900 mg by mouth once daily. Active diltiazem CD (CARDIZEM CD, CARTIA XT) 180 mg 24 hr capsule 6 Active ALBUTEROL, REFILL, INHALATION Inhale as instructed as directed. Active atorvastatin (LIPITOR) 40 mg tablet Take 40 mg by mouth once daily. Active fluticasone (FLONASE ALLERGY RELIEF) 50 mcg/actuation nasal spray Use 1 [place] in each nostril once daily. Active DULoxetine (CYMBALTA) 60 mg capsule Take 60 mg by mouth once daily. 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 Last address used for calculation Not on file 07/04/2020 Comments No Sex and Gender Information Value Date Recorded Sex Assigned at Not on file Legal Sex Female 8:04 AM EST Gender Identity Not on file Sexual Orientation Not on file Last Filed Vital Signs Vital Sign Reading Time Taken Comments Blood Pressure 119/70 12/19/2018 1:50 PM EDT Pulse 81 12/19/2018 1:50 PM EDT Temperature 37 C (98.6 F) 12/19/2018 1:50 PM EDT Respiratory Rate 16 12/19/2018 1:50 PM EDT Oxygen Saturation 98% 12/20/2017 1:46 PM EDT Inhaled Oxygen Concentration - - Weight 65.7 kg (144 lb 11.8 oz) 12/19/2018 1:50 PM EDT Height 165.1 cm (5' 5 ) 12/19/2018 1:50 PM EDT Body Mass Index 24.09 12/19/2018 1:50 PM EDT Plan of Treatment Health Maintenance Due Date Last Done Comments Anxiety Screening 10/16/1953 Depression Screening 10[birth year]16/1953 Shingrix Vaccine (1 of 2) 10/16/1987 Bone Density Screening 2002 RSV Vaccine (1 - 1-dose 75+ series) 2012 Diabetes Screening 12/19/2021 12/19/2018, 12/20/2017 Covid-19 Vaccine ( - 2023- season) 2024 Advance Directive Discussion 07/30/2024 Influenza Vaccine (#1) 2025 05/05/2018 DTaP,Tdap,Td Vaccine (2 - Td or Tdap) 04/15/2025 Pneumococcal Vaccine: 50+ Completed 01/17/2017, Procedures Procedure Name Priority Date/Time Associated Diagnosis Comments COMPREHENSIVE METABOLIC PANEL Routine 12/19/2018 1:53 PM EDT MGUS (monoclonal gammopathy of unknown significance) from Last 3 Months or Most Recently Relevant to Health Maintenance Results * COMP METABOLIC PANEL (12/19/2018 1:53 PM EDT) Protein, Total 7.2 6.3 - 8.0 g/dL 12/20/2018 7:25 AM [facility] Albumin 4.3 3.9 - 4.9 g/dL 12/20/2018 7:25 AM [facility] Calcium 9.1 8.5 - 10.2 mg/dL 12/20/2018 7:25 AM [facility] Bilirubin, Total 0.9 0.2 - 1.3 mg/dL 12/20/2018 7:25 AM [facility] Alkaline Phosphatase 76 34 - 123 U/L 12/20/2018 7:25 AM [facility] AST 32 13 - 35 U/L 12/20/2018 7:25 AM [facility] Glucose 90 74 - 99 mg/dL 12/20/2018 7:25 AM [facility] Comment: The [place] Diabetes Association (ADA) provides guidance for cutoff values for fasting glucose and random glucose. The ADA defines fasting as no caloric intake for at least 8 hours. Fasting plasma glucose results between 100 to 125 mg/dL indicate increased risk for diabetes (prediabetes). Fasting plasma glucose results greater than or equal to 126 mg/dL meet the criteria for diagnosis of diabetes. In the absence of unequivocal hyperglycemia, results should be confirmed by repeat testing. In a patient with classic symptoms of hyperglycemia or hyperglycemic crisis, random plasma glucose results greater than or equal to 200 mg/dL meet the criteria for diagnosis of diabetes. Reference: Standards of Medical Care in Diabetes 2016, [place] Diabetes Association. Diabetes Care. 2016.39(Suppl 1). BUN 16 7 - 21 mg/dL 12/20/2018 7:25 AM [facility] Creatinine 0.78 0.58 - 0.96 mg/dL 12/20/2018 7:25 AM [facility] Sodium 141 136 - 144 mmol/L 12/20/2018 7:25 AM [facility] Potassium 4.2 3.7 - 5.1 mmol/L 12/20/2018 7:25 AM EDT [facility] Chloride 104 97 - 105 mmol/L 12/20/2018 7:25 AM EDT [facility] CO2 23 22 - 30 mmol/L 12/20/2018 7:25 AM EDT [facility] Anion Gap 14 9 - 18 mmol/L 12/20/2018 7:25 AM EDT [facility] ALT 22 7 - 38 U/L 12/20/2018 7:25 AM EDT [facility] eGFR- >60 12/20/2018 7:25 AM EDT [facility] eGFR-All Other Races >60 . 12/20/2018 7:25 AM EDT [facility] Comment: eGFR (Estimated GFR) Units of measure: mL/min/1.73 meters squared eGFR is derived from the reexpressed MDRD Study equation using the following parameters: serum creatinine, age, gender and race. The creatinine assay has been calibrated to be traceable to IDMS. An eGFR <60 mL/min/1.73m2 for >3 months is consistent with chronic kidney disease. Refer to KDOQI guidelines for clinical interpretation. In patients with unstable renal function, e.g. those with acute kidney injury, the eGFR may not accurately reflect actual GFR. Blood specimen (specimen) BLOOD SPECIMEN / Unknown 12/19/2018 1:53 PM EDT 12/19/2018 1:56 PM EDT Liz Obrien PA-C LABORATORY Final Result [facility] [address] [place] [address] [facility] [address] [place] [address] from Last 3 Months or Most Recently Relevant to Health Maintenance Insurance MEDICARE [facility] Care Teams Tube Heater Relationship Specialty Start Date End Date Dania Be CNP [address] [place] [address] PCP - General Family Medicine 12/21/16
--- OUTSIDE RECORDS SUMMARY | 2025-02-09 23:58 | XMS_ITS | Encounter Summary ---
Author Organization [facility] Address [address] [place] [address] Care Team Providers Care Poiser Balance Name Role Phone Idalmis Ybarra DO Primary Care Provider [phone] Idalmis Ybarra DO Primary Care Provider + [phone] Encounter Details Date Type Department Care Team (Late st Contact Info) Description 02/02/2023 External Result Encounter [facility] External Department Unsolicited Atif Price, DO [address] [place] [address] Social History Tobacco Use Types Packs/Day Years Used Date Smoking Tobacco: Never Assessed Comments Unknown Sex and Gender Information Value Date Recorded Sex Assigned at Not on file Legal Sex Female 7:14 PM EDT Gender Identity Not on file Sexual Orientation Not on file documented as of this encounter Plan of Treatment Not on file documented as of this encounter Procedures Procedure Name Priority Date/Time Associated Diagnosis Comments BI MAMMOGRAM SCREENING BILATERAL 02/02/2023 1:30 PM EDT documented in this encounter Results * Bilateral screening mammogram (02/02/2023 1:30 PM EDT) Anatomical Region Laterality Modality Breast Bilateral Mammography 02/02/2023 1:30 PM EDT Impressions 02/05/2023 12:26 PM EDT NO MAMMOGRAPHIC EVIDENCE OF MALIGNANCY. ROUTINE FOLLOW-UP IS RECOMMENDED IN ONE YEAR. RESULT CODE: 1 Negative DENSITY CODE: 2 (approximately 25-50% glandular) FOLLOW UP: 1YR The false-negative rate of mammography is approximately 10-percent. Management of a palpable abnormality must be based on clinical grounds. Patient was entered into a reminder system with a target due date for the next mammogram. Impression dictated by: Aryan Raines Jr., D.OCiara02/02/2023 1:31 PM Dictation Location: [facility] Transcribed By: JEM 02/02/23 1331 Dictated By: Aryan Raines Jr, DO 02/02/23 1330 Signed By: <Electronically signed by Aryan Raines Jr, DO in OV> 02/02/23 1331 Narrative 02/05/2023 12:26 PM EDT [address] [address] Mammography Report Signed Patient: Filomena Mcintyre MR#: [id number] 2003 : 1935 Acct:[id number] Age/Sex: 87 / F ADM Date: 02/02/23 Loc: [place] Room: Type: [facility] Attending Dr: Atif Price DO Copies to: DO Idalmis Newton DO Ordering Provider: Atif Price DO Date of Service: 02/02/23 MM/MM screening mammo BI w/CAD: Yrly mamms;Encounter for screening mammogram for malignant n CLINICAL DATA: Screening for malignancy. SCREENING MAMMOGRAM - FULL FIELD DIGITAL WITH TOMOSYNTHESIS AND CAD COMPARISON:Mammograms dating back to 2019. Tomosynthesis craniocaudal and mediolateral oblique views of both breasts were obtained using low- dose digital technique. This examination was reviewed with the aid of CAD. The breast tissue is composed of scattered fibroglandular densities. There are no dominant masses, typically malignant calcifications or architectural distortion. There has been no significant interval change. MM/MM screening mammo BI w/CAD Procedure Note Radiology, Radiologist, - 02/05/[address] [address] Mammography Report Signed Patient: Filomena Mcintyre LMR#: [id number] 2003 : 8Acct:[id number] Age/Sex: 87 / FADM Date: 02/02/23 Loc: [place] Room:Type: [facility] Attending Dr: Atif Price DO Copies to: DO Idalmis Newton DO Ordering Provider: Atif Price DO Date of Service: 02/02/23 MM/MM screening mammo BI w/CAD: Yrlymamms;Encounter for screening mammogram for malignant n CLINICAL DATA: Screening for malignancy. SCREENING MAMMOGRAM - FULL FIELD DIGITAL WITH TOMOSYNTHESIS AND CAD COMPARISON:Mammograms dating back to 2019. Tomosynthesis craniocaudal and mediolateral oblique views of both breastswere obtained using low- dose digital technique. This examination was reviewed with the aid ofCAD. The breast tissue is composed of scattered fibroglandular densities.There are no dominant masses, typically malignant calcifications or architectural distortion. There hasbeen no significant interval change. MM/MM screening mammo BI w/CAD IMPRESSION: NO MAMMOGRAPHIC EVIDENCE OF MALIGNANCY. ROUTINE FOLLOW-UP IS RECOMMENDED IN ONE YEAR. RESULT CODE: 1 Negative DENSITY CODE: 2 (approximately 25-50% glandular) FOLLOW UP: 1YR The false-negative rate of mammography is approximately 10-percent. Management of a palpable abnormality must be based on clinical grounds. Patient was entered into a reminder system with a target due date for thenext mammogram. Impression dictated by: Aryan Raines Jr., D.OCiara02/02/2023 1:31 PM Dictation Location: [facility] Transcribed By: [facility] 02/02/23 1331 Dictated By: Aryan Raines Jr, DO 02/02/23 1330 Signed By: <Electronically signed by Aryan Raines Jr, DO inOV> 02/02/23 1331 us Atif Price DO IMG BI PROCEDURES Final R esult documented in this encounter Visit Diagnoses Not on filedocumented in this encounter Care Teams Poiser Balance Relationship Specialty Start Date End Date Idalmis Ybarra DO PCP - General Family Medicine 02/09/23 01/27/24 Idalmis Ybarra DO PCP - General Family Medicine 01/28/24 documented as of this encounter
--- OUTSIDE RECORDS SUMMARY | 2025-02-09 23:58 | XMS_ITS | Encounter Summary ---
Author Organization [facility] Address [address] [place] [address] Care Team Providers Care Oil And Gas Superintendent Name Role Phone RandallIdalmis moreno Primary Care Provider [phone] Encounter Details Date Type Department Care Team (Late st Contact Info) Description 02/20/2024 External Result Encounter [facility] External Department Unsolicited Atif Price, DO [address] [place] [address] Social History Tobacco Use Types Packs/Day Years Used Date Smoking Tobacco: Never Smokeless Tobacco: Never Alcohol Use Standard Drinks/Week Comments Yes 2 (1 standard drink = 0.6 oz pur e alcohol) Comments Unknown Sex and Gender Information Value Date Recorded Sex Assigned at Not on file Legal Sex Female 7:14 PM EDT Gender Identity Not on file Sexual Orientation Not on file Occupation Industry Job Start Date Job End Date Not on file Not on file Not on file Not on file documented as of this encounter Plan of Treatment Not on file documented as of this encounter Procedures Procedure Name Priority Date/Time Associated Diagnosis Comments BI MAMMOGRAM SCREENING TOMOSYNTHESIS BILATERAL 02/20/2024 2:03 PM EDT documented in this encounter Results * Bilateral screening mammogram with tomosynthesis (02/20/2024 2:03 PM EDT) Anatomical Region Laterality Modality Breast Bilateral Mammography 02/20/2024 2:03 PM EDT Impressions 02/20/2024 2:06 PM EDT NO MAMMOGRAPHIC EVIDENCE OF MALIGNANCY. [...] for the next mammogram. Impression dictated by: Catarina Cox Jr.OCiara02/20/2024 2:04 PM Dictation Location: [facility] Transcribed By: JEM 02/20/24 140 Dictated By: Aryan Raines Jr, DO 02/20/24 1403 Signed By: <Electronically signed by Aryan Raines Jr, DO in OV> 02/20/24 1404 Narrative 02/20/2024 2:06 PM EDT [place] [address] Mammography Report Signed Patient: Filomena Mcintyre MR#: [id number] 2003 : 1935 Acct:[id number] Age/Sex: 88 / F ADM Date: 02/20/24 Loc: [place] Room: Type: [facility] Attending Dr: Atif Price DO Copies to: DO Idalmis Newton DO Ordering Provider: Aitf Price DO Date of Service: 02/20/24 MM/MM screening mammo BI w/CAD: SCREENING CLINICAL DATA: Screening for malignancy. SCREENING MAMMOGRAM - FULL FIELD DIGITAL WITH TOMOSYNTHESIS AND CAD COMPARISON:Mammograms dating back to 2020. Tomosynthesis craniocaudal and mediolateral oblique views of both breasts were obtained using low- dose digital technique. This examination was reviewed with the aid of CAD. FINDINGS: The breast tissue is composed of scattered fibroglandular densities. There are no dominant masses, typically malignant calcifications or architectural distortion. There has been no significant interval change. MM/MM screening mammo BI w/CAD Procedure Note Radiology, Radiologist, MD - 02/20/2024 [facility] [place] [address] [place] [address] Mammography Report Signed Patient: Filomena Mcintyre LMR#: [id number] 2003 : 8Acct:[id number] Age/Sex: 88 / FADM Date: 02/20/24 Loc: [place] Room:Type: [facility] Attending Dr: Atif Price DO Copies to: DO Idalmis Newton DO Ordering Provider: Atif Price DO Date of Service: 02/20/24 MM/MM screening mammo BI w/CAD: SCREENING CLINICAL DATA: Screening for malignancy. SCREENING MAMMOGRAM - FULL FIELD DIGITAL WITH TOMOSYNTHESIS AND CAD COMPARISON:Mammograms dating back to 2020. Tomosynthesis craniocaudal and mediolateral oblique views of both breastswere obtained using low- dose digital technique. This examination was reviewed with the aid ofCAD. FINDINGS: The breast tissue is composed of scattered [...] mammogram. Impression dictated by: Aryan Raines Jr., D.OCiara02/20/2024 2:04 PM Dictation Location: [facility] Transcribed By: [facility] 02/20/24 1404 Dictated By: Aryan Raines Jr, DO 02/20/24 1403 Signed By: <Electronically signed by Aryan Raines Jr, DO inOV> 02/20/24 1404 Atif Price DO IMG BI PROCEDURES Final R esult documented in this encounter Visit Diagnoses Not on filedocumented in this encounter Care Teams Oil And Gas Superintendent Relationship Specialty Start Date End Date Idalmis Ybarra DO PCP - General Family Medicine 01/28/24 documented as of this encounter
--- OUTSIDE RECORDS SUMMARY | 2025-02-09 23:58 | XMS_ITS | Clinical Summary ---
Author Organization [facility] Address [address] [place] [address] Phone Care Team Providers Care Employee Communications Manager Name Role Phone Unavailable Primary Care Provider Unavailabl e Social History Tobacco Use Types Packs/Day Years Used Date Smoking Tobacco: Never Assessed Comments Unknown Sex and Gender Information Value Date Recorded Sex Assigned at Not on file Legal Sex Female 12:45 AM EST Gender Identity Not on file Sexual Orientation Not on file Plan of Treatment Not on file
--- OUTSIDE RECORDS SUMMARY | 2025-02-09 23:58 | XMS_ITS | Encounter Summary ---
Author Organization [employer] Address [id number] [address] [place] [address] Care Team Providers Care Detective Youth Bureau Name Role Phone RandallIdalmis moreno Primary Care Provider + [phone] Reason for Visit * Reason Comments Med Refill Encounter Details Date Type Department Care Team (Late st Contact Info) Description 02/05/2025 Refill [facility] [address] [place] [address] Nella Mcdonald, AIR POLLUTION ENGINEER-REFRESH TECHNICIAN [address] [place] [address] Med Refill Social History Tobacco Use Types [...] encounter Visit Diagnoses Diagnosis Hyperlipidemia, unspecified hyperlipidemia type documented in this encounter Care Teams Detective Youth Bureau Relationship Specialty Start Date End Date Idalmis Ybarra DO [address] [place] [address] PCP - General Family Medicine 04/17/22 documented as of this encounter
--- OUTSIDE RECORDS SUMMARY | 2025-02-09 23:58 | XMS_ITS | Encounter Summary ---
Author Organization [employer] Address [id number] [address] [place] [address] Care Team Providers Care Training Project Manager Name Role Phone RandallIdalmis moreno Primary Care Provider + [phone] Reason for Visit * Reason Onset Date Comments Med Refill 05/24/2021 Encounter Details Date Type Department Care Team (Late st Contact Info) Description 05/24/2021 Refill [facility] [address] [place] [id number] Halina Scales RN Med Refill Social History Tobacco Use Types [...] on file documented as of this encounter Results * AST (05/24/2021 10:21 AM EDT) AST 23 0 - 41 U/L 05/24/2021 4:09 PM EDT [facility] Serum / Unknown 05/24/2021 1 0:21 AM EDT 05/24/2021 10:22 AM EDT Mariano Fontaine MD LAB BLOOD ORDERABLES Final Re sult [facility] [address] [place] [address] * ALT (05/24/2021 10:21 AM EDT) ALT 16 0 - 31 U/L 05/24/2021 4:09 PM EDT [facility] Serum / Unknown 05/24/2021 1 0:21 AM EDT 05/24/2021 10:22 AM EDT Mariano Fontaine MD LAB BLOOD ORDERABLES Final Re sult Performing Organization Address City/[facility]/ZIP Co de Phone Number [facility] [address] [place] [id number] * Lipid profile (05/24/2021 10:21 AM EDT) Cholesterol 190 150 - 200 mg/dL 05/24/2021 4:09 PM EDT [facility] Triglycerides 101 27 - 150 mg/dL 05/24/2021 4:09 PM EDT [facility] HDL Cholesterol 73 >39 mg/dL 4:09 PM EDT [facility] Comment: HDL <40 mg/dL - High Risk HDL > or = 40mg/dL- Desirable HDL >60 mg/dL - Negative Risk VLDL 20 0 - 30 mg/dL 05/24/2021 4:09 PM EDT [facility] LDL (calc) 97 <130 mg/dL 05/24/2021 4:09 PM EDT [facility] Comment: LDL <100 mg/dL - Desirable LDL >160 mg/dL - High Risk Cholesterol:HDL Ratio 2.6 1.0 - 5.0 05/24/2021 4:09 PM EDT [facility] Serum / Unknown 05/24/2021 1 0:21 AM EDT 05/24/2021 10:22 AM EDT us Mariano Fontaine MD LAB BLOOD ORDERABLES Final Re sult [facility] [address] [place] [address] documented in this encounter Visit Diagnoses Diagnosis Hyperlipidemia, unspecified hyperlipidemia type- Primary documented in this encounter Care Teams Training Project Manager Relationship Specialty Start Date End Date Idalmis Ybarra DO [address] [place] [address] PCP - General Family Medicine 04/17/22 documented as of this encounter
--- OUTSIDE RECORDS SUMMARY | 2025-02-09 23:58 | XMS_ITS | Clinical Summary ---
Author Organization [facility] Address [address] [place] [address] Care Team Providers Care Wrapping Checker Name Role Phone Idalmis Ybarra Primary Care Provider Allergies Active Allergy Reactions Criticality Noted Date Comments Gentamicin 07/01/2019 Other Reaction(s): retinal damage Metoprolol 07/31/2014 Other reaction(s): Fatigue Penicillin G Unknown 02/09/2023 Penicillins 07/31/2014 Other Reaction(s): hives Other reaction(s): Intolerance-unknown Medications acetaminophen (Tylenol) 500 MG tablet Take 500 mg by mouth Daily as needed. Active albuterol HFA 90 mcg/act inhaler Inhale 2 puffs every 6 (six) hours if needed. Active atorvastatin (Lipitor) 20 MG tablet Take 20 mg by mouth in the morning. Active calcium carbonate 1500 (600 Ca) MG tablet 1,200 mg in the morning. Active cetirizine (ZyrTEC) 10 MG tablet Take 10 mg by mouth in the morning. Active coenzyme Q-10 100 MG capsule Take 100 mg by mouth in the morning. Active dilTIAZem CD (Cardizem CD) 240 MG 24 hr capsule Take 240 mg by mouth in the morning. 12/13/2022 Active DULoxetine (Cymbalta) [address] capsule Take 90 mg by mouth in the morning. Active DULoxetine (Cymbalta) [address] capsule TAKE 1 CAPSULE BY MOUTH EVERY DAY (along with the 60mg) 12/13/2022 Active fluticasone (Flonase) 50 MCG/ACT nasal spray 1 spray in each nostril Once a day Nasally 30 day(s) for 30 Active LUTEIN PO Take 1 tablet by mouth in the morning. Active omega-3 (fish oil) 1000 MG capsule Take 1 capsule by mouth in the morning. 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 02/09/2023 Mixed hyperlipidemia 02/09/2023 Multinodular goiter 02/09/2023 Screening mammogram for high-risk patient 2022 Immunizations Immunization Administration Dates Next Due Influenza, seasonal, injectable, preservative fr ee 05/05/2018 Pneumococcal Conjugate PCV 13 07/21/2015 Pneumococcal Polysaccharide PPSV23 01/17/2017 Family History Medical History Relation Name Comments Accidental Father Mirza Barr Cancer Maternal Grandfather Joaquin Carmichael Cancer Maternal Grandmother Shikha Headley et Lung cancer Maternal Grandmother Shikha Headley et Diabetes Mother Filomena Maldonado Heart disease Mother Filomena Maldonado Stroke Mother Filomena Maldonado No Known Problems Paternal Grandfather No Known Problems Paternal Grandmother Relation Name Status Comments Father Mirza Barr Maternal Grandfather Joaquin Carmichael Maternal Grandmother Shikha Carmichael Mother Filomena Maldonado Paternal Grandfather Paternal Grandmother Social History Tobacco Use Types Packs/Day Years Used Date Smoking Tobacco: Never Smokeless Tobacco: Never Tobacco Cessation:Counseling Given: Not Answered Alcohol Use Standard Drinks/Week Comments Yes 2 [...] file Not on file Not on file Last Filed Vital Signs Vital Sign Reading Time Taken Comments Blood Pressure 138/82 02/09/2023 10:50 AM EDT Pulse - - Temperature - - Respiratory Rate - - Oxygen Saturation - - Inhaled Oxygen Concentration - - Weight 56.7 kg (125 lb) 02/27/2024 3:21 PM EDT Height 158.8 cm (5' 2.5 ) 02/27/2024 3:21 PM EDT Body Mass Index 22.5 02/27/2024 3:21 PM EDT Plan of Treatment Health Maintenance Due Date Last Done Comments Influenza Vaccine (#1) 2025 3, 05/04/2022, 06/10/2021, Additional history exists Pneumococcal Vaccine: 65+ Years Completed 7, 07/21/2015 Insurance MEDICARE [facility] [place] [address] Care Teams Wrapping Checker Relationship Specialty Start Date End Date Idalmis Ybarra DO PCP - General Family Medicine 01/28/24
--- OUTSIDE RECORDS SUMMARY | 2025-02-09 23:58 | XMS_ITS | Clinical Summary ---
Author Organization [employer] Address [id number] [address] [place] [address] Care Team Providers Care Lead Systems Architect Name Role Phone Idalmis Ybarra DO Primary Care Provider + [phone] Allergies Active Allergy Reactions Criticality Noted Date Comments Gentamicin 07/01/2019 Metoprolol Succinate 07/31/2014 Other reaction(s): Fatigue Penicillins 07/31/2014 Other reaction(s): Intolerance-unknown Medications fluticasone (FLONASE) 50 mcg/actuation nasal spray Administer 1 spray into each nostril in the morning. Active DULoxetine (CYMBALTA) 60 mg capsule Take 90 mg by mouth in the morning. Active omega 2-hwi-ply-fish oil (FISH OIL) 100-160-1,000 mg capsule Take 1 capsule by mouth in the morning. 1000 mg. Active calcium carbonate (OS-OMAR) 600 mg (1,500 mg) tablet 2 tablets (1,200 mg total) in the morning. Active FOLIC ACID/MULTIVIT-MIN/ LUTEIN (CENTRUM SILVER ORAL) Take by mouth in the morning. Active acetaminophen (TYLENOL) 500 mg tablet Take 1 tablet (500 mg total) by mouth as needed for pain. Active albuterol (PROVENTIL HFA;VENTOLIN HFA) 90 mcg/actuation inhaler Inhale 2 puffs every 6 (six) hours as needed for wheezing. Active cranberry 400 mg capsule Take 1 capsule (400 mg total) by mouth in the morning. Active cyanocobalamin 2000 MCG tablet Take 1 tablet (2,000 mcg total) by mouth in the morning. Active atorvastatin (LIPITOR) 20 mg tabletIndications: Hyperlipidemia, unspecified hyperlipidemia type Take 1 tablet (20 mg total) by mouth in the morning. 90 tablet 3 3 Active dilTIAZem CD (CARDIZEM CD) 240 mg 24 hr capsuleIndications :Ventricular premature beats TAKE 1 CAPSULE BY MOUTH EVERY MORNING 90 capsule 3 5 Active magnesium oxide (MAGOX) 400 mg tabletIndications: Ventricular premature beats Take 1 tablet (400 mg total) by mouth daily with dinner. 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 Benign essential hypertension 12/31/2009 Hyperlipidemia Nonrheumatic mitral (valve) insufficiency Supraventricular tachycardia Ventricular premature depolarization Palpitations Encounters Date Type Department Care Team Description 02/05/2025 Refill [facility] [address] [place] [phone] Nella Mcdonald APRN-DENISE Med Refill 11/17/2024 Orders Only [facility] [address] [place] [phone] External, Scanning Provider 11/14/2024 1:15 PM EDT Office Visit [facility] [address] [place] [phone] Javi Mujica MD Ventricular premature beats (Primary Dx); Supraventricular tachycardia 11/14/2024 Travel 11/13/2024 Telephone [facility] [address] [place] [phone] Brandi Boltno CMA from Last 3 Months Family History Medical History Relation Name Comments No Known Problems Father Heart failure Mother Relation Name Status Comments Father Mother Social History Tobacco Use Types Packs/Day Years Used Date Smoking Tobacco: Never Smokeless Tobacco: Never Tobacco Cessation:Counseling Given: Not Answered Alcohol Use Standard Drinks/Week Comments Yes 0 [...] Orientation Straight 06/26/2018 5: 19 PM EST Last Filed Vital Signs Vital Sign Reading Time Taken Comments Blood Pressure 130/70 11/14/2024 1:05 PM EDT Pulse 93 11/14/2024 1:05 PM EDT Temperature 37.1 C (98.8 F) 10/03/2020 1:10 PM EST Respiratory Rate 18 10/03/2020 2:45 PM EST Oxygen Saturation 97% 11/14/2024 1:05 PM EDT Inhaled Oxygen Concentration - - Weight 51.6 kg (113 lb 12.8 oz) 11/14/2024 1:05 PM EDT Height 160 cm (5' 3 ) 11/14/2024 1:05 PM EDT Body Mass Index 20.16 11/14/2024 1:05 PM EDT Plan of Treatment Health Maintenance Due Date Last Done Comments Depression Screening 1949 Zoster (Shingles) Vaccine (1 of 2) 10/16/1987 Fall Risk Screening 2002 COVID-19 Vaccine (2023-2 5 season) 2024 05/10/2024, 06/14/2023, 05/04/2022, Additional history exists Influenza Vaccine 03/30/2025 05/10/2024, , 05/04/2022, Additional history exists Tobacco Screening 11/14/2025 11/14/2024 DTaP,Tdap and Td Vaccines (4 - Td or Tdap) 01/22/2033 01/22/2023, 02/21/2019, 04/15/2015 Medical Devices Not on file Procedures Procedure Name Priority Date/Time Associated Diagnosis Comments POCT EKG Routine 11/14/2024 Ventricular premature beats Supraventricular tachycardia from Last 3 Months Results * POCT EKG (11/14/2024) 11/14/2024 us Javi Mujica MD ECG ORDERABLES Final Result MANUALLY TRANSCRIBED RESULTS from Last 3 Months Insurance MEDICARE [facility] Care Teams Lead Systems Architect Relationship Specialty Start Date End Date Idalmis Ybarra DO [address] [place] [address] PCP - General Family Medicine 04/17/22
[2025-02-10] VITALS (23 sets, daily range): BP systolic 100–126; BP diastolic 52–70; PULSE 72–100; TEMP 36.6–36.9; O2SAT 89–99; BMI 19.4
--- NOTE | 2025-02-10 00:07 | ECG_ITS ---
[facility] Test Date: 2025-02-10 Pat Name: RANDY QUINTANILLA Department: Room: - Gender: Female Personnel Director: : 1935 Requested By: [id number] Order Number: [id number] Reading MD: CORTES AHUMADA Measurements Intervals [place] Rate: 76 P: -79 AL: 228 QRS: 1 QRSD: 84 T: 83 QT: 402 QTc: 432 Interpretive Statements 1220 Ectopic atrial rhythm 2231 First degree AV block 4068 Nonspecific Twave abnormality 9150 abnormal ECG Compared to ECG 12/14/2024 10:21:21 First degree AV block now present Sinus rhythm no longer present Electronically Signed On 02-11-2025 13:28:48 EDT by CORTES AHUMADA
--- NOTE | 2025-02-10 00:07 | XR_ITS ---
The [address] [address] Patient Name: RANDY QUINTANILLA MRN: [id number] date: 1935 Sex: F Assigned Patient Location: ER Current Patient Location: [place] Accession/Order Number: [id number] Exam Date: 02/10/2025 07:53 Report Date: 02/10/2025 07:56 At the request of: TED WHITMORE MD Procedure: XR chest 1V PA CHEST: CLINICAL HISTORY: Weakness with unwitnessed fall. Left hip pain. COMPARISON: 12/14/2024 The heart is top normal in size. The pulmonary vasculature is within normal limits. No consolidation, pleural effusion or pneumothorax is seen. The bony structures are osteopenic. Endplate spurring is seen at the spine. There are multiple healing right lateral rib fractures. XR/XR chest 1V IMPRESSION: NO ACUTE CARDIOPULMONARY FINDINGS. Impression dictated by: Jaquelin Benson M.D. 02/10/2025 7:56 AM Dictation Location: [place] [address] Electronically authenticated by: [id number] Y Date: 02/10/2025 07:56
--- NOTE | 2025-02-10 00:07 | XR_ITS ---
The [address] [address] Patient Name: RANDY QUINTANILLA MRN: [id number] date: 1935 Sex: F Assigned Patient Location: ER Current Patient Location: [place] Accession/Order Number: [id number] Exam Date: 02/10/2025 07:47 Report Date: 02/10/2025 07:51 At the request of: TED WHITMORE MD Procedure: XR hip LT 2V w/ pelvis LEFT HIP WITH AP PELVIS - 3 views COMPARISON: CT 12/14/2024 CLINICAL DATA: Patient was weak and fell. Left hip pain. Fall 2 weeks ago with sacral fracture. AP view of the pelvis as well as AP and frog-lateral views of the left hip were obtained. There is osteopenia. No acute fracture or dislocation is identified. The hip joint spaces are symmetric. Similar degenerative changes are seen. The SI joints are intact. Mild degenerative changes are also present at the lower imaged lumbar spine. No soft tissue abnormalities are present. XR/XR hip LT 2V w/ pelvis IMPRESSION: OSTEOPENIA AND DEGENERATIVE CHANGES. NO ACUTE LEFT HIP INJURY. Impression dictated by: Jaquelin Benson M.D. 02/10/2025 7:51 AM Dictation Location: [place] [address] Electronically authenticated by: [id number] Y Date: 02/10/2025 07:51
--- NOTE | 2025-02-10 00:37 | ED.FALL1 ---
HPI HPI - Fall General Chief Complaint: Fall Stated Complaint: FALL Time Seen by Provider: 02/09/25 23:55 Source comment: EMS Mode of arrival: ambulance History of Present Illness HPI Narrative: This 89-year-old female who lives alone is brought to the emergency department by EMS. The patient has an Apple Watch that alerted that she had fallen. Upon EMS arrival the patient was sitting by the front door. She does not recall falling. She admits that she has had multiple recent falls. She has a resting tremor and after reviewing recent documentation it is thought that she may have Parkinson's disease. The patient denies any headache or neck pain. She does not have any thoracic pain. She does have some mild tenderness on the left posterior hip area. The patient did have a fall in mid November in which she had a sacral fracture as well as multiple rib fractures. She was admitted at that time. Besides that the patient lives alone with her 6 cats. She denies any chest pain or shortness of breath. She is pleasantly confused. She does not have any notable injury to her head, neck, back, chest, abdomen pelvis upper or lower extremities. Her only request upon arrival is something to drink. Related Data Home Medications ?Medication ?Instructions ?Recorded ?Confirmed atorvastatin 20 mg tablet 20 mg PO DAILY 12/13/24 12/14/24 bupropion HCl 300 mg 24 hr tablet, 300 mg PO DAILY 12/13/24 12/14/24 extended release diltiazem HCl 240 mg 240 mg PO DAILY 12/13/24 12/14/24 capsule,extended release 24 hr duloxetine 30 mg capsule,delayed 30 mg PO DAILY 12/13/24 12/14/24 release duloxetine 60 mg capsule,delayed 60 mg PO DAILY 12/13/24 12/14/24 release magnesium oxide 400 mg (241.3 mg 400 mg PO DAILY 12/13/24 12/14/24 magnesium) tablet Previous Rx's ?Medication ?Instructions ?Recorded acetaminophen 500 mg tablet 1,000 mg (2 x 500 mg) PO Q6H PRN 12/16/24 Pain Scale 4-6 #100 tabs food supplemt, lactose-reduced 1 ea PO BID #5,688 mL 12/16/24 0.04 gram-1.05 kcal/mL oral liquid (Ensure Original) Allergies Allergy/AdvReac Type Severity Reaction Status Date / Time Penicillins Allergy Unknown rash Verified 12/13/24 19:26 gentamicin AdvReac Severe Dizziness Verified 12/14/24 15:46 Opioid HPI Opioid Management Most Recent Pain and Opioid Data: Last Pain Scale 0 12/16/24, 08:36 Last ORT Total Score 2 12/14/24, 14:33 Last ORT Risk Category Low Risk 12/14/24, 14:33 Review of Systems ROS Status of ROS 10 or more systems reviewed and unremarkable except as noted in history and below [facility] Medical History (Updated 02/10/25 @ 03:16 by Luana Villagran MD) Coarse tremors ?G25.2 - Other specified forms of tremor (ICD-10) Finger wound, simple, open ?S61.209A - Unspecified open wound of unspecified finger without damage to nail, initial encounter (ICD-10) Fall ?W19.XXXA - Unspecified fall, initial encounter (ICD-10) Closed sacral fracture ?S32.10XA - Unspecified fracture of sacrum, initial encounter for closed fracture (ICD-10) Multiple fractures of ribs ?S22.49XA - Multiple fractures of ribs, unspecified side, initial encounter for closed fracture (ICD-10) Depression ?F32.A - Depression, unspecified (ICD-10) Hyperlipemia ?E78.5 - Hyperlipidemia, unspecified (ICD-10) Hypertension ?I10 - Essential (primary) hypertension (ICD-10) Surgical History (Updated 12/14/24 @ 15:38 by Soco Little) Hx of tonsillectomy ?Z90.89 - Acquired absence of other organs (ICD-10) H/O: hysterectomy ?Z90.710 - Acquired absence of both cervix and uterus (ICD-10) History of cholecystectomy ?Z90.49 - Acquired absence of other specified parts of digestive tract (ICD-10) Family History (Updated 12/14/24 @ 15:39 by Soco Little) Grandmother Family history of cancer Social History (Updated 12/14/24 @ 15:41 by Soco Little) Within the past year, how often did you have a drink containing alcohol: 2-4 times a month Within the past year, how often did you have six or more drinks on one occasion: never Smoking status: Never smoker Second hand tobacco smoke exposure: No Non-prescribed substance use: denies use 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 Known occupational exposures/hazards: No Highest level of school completed/degree received: high school graduate Do you want help with school or training: No Are you now , , , , never or living with a partner: In a typical week, how many times do you talk on the telephone with family, friends, or neighbors: once per week How often do you get together with friends or relatives: once per week How often do you attend mu-ism or roman catholic services: 4 or more times per year Little interest or pleasure in doing things: not at all Feeling down, depressed, or hopeless: not at all Feel stressed/tense/nervous/anxious/difficulty sleeping: not at all Due to disability, difficulty making decisions: No Do you think of yourself as: straight/heterosexual Gender Identity: female Exam Narrative Exam Narrative: Vital signs and Nursing Notes reviewed: Patient is afebrile with a normal pulse, normal respiratory rate, normal blood pressure, she is not hypoxic with pulse ox of 97% on room air General: Awake, alert, oriented to person, knows she is in a hospital. HEENT: Normocephalic atraumatic, mucous membranes are moist and pink, eyes are clear, normal conjunctiva, vision is grossly intact, posterior pharynx is normal in appearance. No oral or dental injury noted. Neck: Supple, no midline bony vertebral tenderness or step-off Chest: Lungs are clear to auscultation with good air entry, there is no wheezing rhonchi or rales appreciated no accessory muscle use, patient is speaking in complete sentences-no chest wall tenderness to palpation CVS: Regular rate and rhythm S1-S2, no murmurs rubs or gallops, pulses are brisk and equal bilaterally ABD: Soft, nondistended, nontender, no rebound guarding or rigidity, bowel sounds are normal, no pulsatile masses appreciated, stable pelvic rock Extremities: Moving all extremities, no lower extremity tenderness or swelling noted, mild discomfort with flexion of the left hip and knee in the posterior pelvic area. No midline bony vertebral thoracic or lumbar tenderness noted. Skin: Normal in appearance without rash,pallor, petechiae or purpura Neuro: Oriented to person, resting tremor, no gross focal deficits. Speech is clear, there is no facial droop, member service specialist strength is intact Constitutional Vital Signs, click to edit/add: Last Vital Signs Temp 97.5 F L 02/09/25 23:56 Pulse 85 02/10/25 02:50 Resp 25 H 02/10/25 02:50 BP 105/65 02/10/25 02:30 Pulse Ox 89 L 02/10/25 02:50 O2 Del Method Room Air 02/09/25 23:56 Course Vital Signs Vital signs: Vital Signs Temperature 97.5 F L 02/09/25 23:56 Pulse Rate 78 02/09/25 23:56 Respiratory Rate 20 02/09/25 23:56 Blood Pressure 112/56 02/09/25 23:56 Pulse Oximetry 97 02/09/25 23:56 Oxygen Delivery Method Room Air 02/09/25 23:56 Temperature 97.5 F L 02/09/25 23:56 Pulse Rate 85 02/10/25 02:50 Respiratory Rate 25 H 02/10/25 02:50 Blood Pressure 105/65 02/10/25 02:30 Pulse Oximetry 89 L 02/10/25 02:50 Oxygen Delivery Method Room Air 02/09/25 23:56 MDM - Fall MDM Narrative Medical decision making narrative: This 89-year-old who lives alone and was recently admitted to this facility after she fell and had a sacral fracture and multiple rib fractures is brought to the emergency department by EMS from home. Her iPhone alerted that she had fallen. EMS found the patient sitting by her front door. Upon arrival she is awake alert pleasantly confused. From review of her records I believe this is her baseline. She does not have any notable head injury, neck pain, chest pain, thoracic pain but does have some tenderness in the left lower back area. She is moving both lower extremities without difficulty but does wince somewhat with movement of the left leg. EKG done upon arrival was a sinus rhythm with no acute changes. Routine labs were ordered. She has a normal white count and stable hemoglobin. Electrolytes are normal. Troponin is normal. CT scan of the brain, cervical spine and lumbar spine was ordered as this fall was unwitnessed and the patient was unable to provide any additional information. CTs of the cervical spine shows no acute cervical spine fracture. CT scan of the brain shows global cerebral volume loss with no acute intracranial hemorrhage. CT scan of the lumbar spine shows grade 1 anterolisthesis of L4 over L5. The vertebral bodies are otherwise normal in height and normal in alignment with intervertebral disc space preservation. Sacrum and pelvic structures are unremarkable with partially healing right sided rib fractures and a partially visualized T12 superior endplate compression fracture with mild loss of vertebral body height. This is new compared to a CT scan dated 12/14/2024. Otherwise there was a new acute lumbar spine fracture. Chest x-ray was negative for acute findings and x-ray of the hips and pelvis does not show any acute fracture with chronic degenerative changes. The results of these findings were discussed with the patient. She was admitted here in November and home health had been arranged to help her at home. The patient does not think that home health ever came or if they did it was briefly. During our conversation she has moments of clarity and then forgets what she was saying or drifts off and cannot remember what the conversation was. The patient states that her stepdaughter and her look in on her and help her out. She does not want to be admitted to a rehab facility. She is adamant that she wants to maintain her independence. Urine was collected and she was given a trial of ambulation but was very unsteady on her feet. Urine is positive for UTI with leukocyte esterase and 5-10 white blood cells per high-power field with large bacteria. She was given 1 g of IV Rocephin for the UTI and medicated with Tylenol for her pain. This point I believe it is prudent to admit her for at least social work evaluation and or PT OT if the plan is to return home independently. Medical Records Attestation: I reviewed the patient's medical records. Lab Data Attestation: I reviewed the patient's lab results. Labs: Lab Results 02/10/25 02/10/25 Range/Units 00:12 02:55 WBC 7.0 (4.0-11.0) 10^3/uL RBC 3.11 L (4.20-5.40) 10^6/uL Hgb 10.1 L (12.0-16.0) g/dL Hct 30.1 L (36.0-48.0) % MCV 96.8 (81.0-99.0) fL MCH 32.5 (26.7-34.0) pg MCHC 33.6 (29.9-35.2) g/dL RDW 13.9 (11.0-15.0) % Plt Count 214 (150-450) 10^3/uL MPV 11.8 (9.5-13.5) fL Neut % (Auto) 80.7 H (43.0-75.0) % Lymph % (Auto) 13.9 L (20.5-60.0) % Dawes % (Auto) 4.9 (1.7-12.0) % Eos % (Auto) 0.0 L (0.9-7.0) % Baso % (Auto) 0.4 (0.2-2.0) % Neut # (Auto) 5.6 (1.4-6.5) 10^3/uL Lymph # (Auto) 1.0 L (1.2-3.8) 10^3/uL Dawes # (Auto) 0.3 (0.3-0.8) 10^3/uL Eos # (Auto) 0.0 (0.0-0.7) 10^3/uL Baso # (Auto) 0.0 (0.0-0.1) 10^3/uL Abs Immat Gran (auto) 0.01 (0.00-0.03) 10^3/uL Imm/Tot Granulo (auto) 0.1 (0.0-0.5) % Sodium 139 (136-145) mmol/L Potassium 4.2 (3.5-5.1) mmol/L Chloride 103 (98-107) mmol/L Carbon Dioxide 28.0 (21.0-32.0) mmol/L Anion Gap 12.2 BUN 19.0 H (7.0-18.0) mg/dL Creatinine 1.24 H (0.55-1.02) mg/dL Est GFR ( Amer) 50 L (>=60 mL/min/1.73m^2) Est GFR (Non-Af Amer) 41 L (>=60 mL/min/1.73m^2) BUN/Creatinine Ratio 15.3 Glucose 134 H (74-106) mg/dL Calcium 9.0 (8.5-10.1) mg/dL Total Bilirubin 1.1 H (0.2-1.0) mg/dL AST 18 (15-37) U/L ALT 19 (14-59) U/L Alkaline Phosphatase 76 (46-116) U/L Troponin I High Sens 8.7 (4.0-51.3) pg/mL Total Protein 6.4 (6.4-8.2) g/dL Albumin 3.6 (3.4-5.0) g/dL Globulin 2.8 g/dL Albumin/Globulin Ratio 1.3 Urine Color Lt. orange (YELLOW) Urine Clarity Clear (CLEAR) Urine pH 6.0 (5.0-9.0) Ur Specific [place] >=1.030 A (1.005-1.025) Urine Protein Trace (NEG/TRACE) mg/dL Urine Glucose (UA) Negative (NEGATIVE) mg/dL Urine Ketones Trace A (NEGATIVE) mg/dL Urine Occult Blood Negative (NEGATIVE) Urine Nitrite Negative (NEGATIVE) Urine Bilirubin Negative (NEGATIVE) Urine Urobilinogen 1.0 (0.2-1.0) EU/dL Ur Leukocyte Esterase Moderate A (NEGATIVE) Urine RBC None seen (0-2) #/HPF Urine WBC 5-10 A (NONE SEEN) #/HPF Ur Squamous Epith Cells Few A (NONE/RARE) #/LPF Urine Crystals Seen A (None Seen) #/HPF Calcium Oxalate Crystal Rare Urine Bacteria Large A (NONE SEEN) #/HPF Urine Casts None seen (NONE SEEN) #/LPF Urine Mucus None seen (NONE SEEN) Ur Culture Indicated? [place] [place] Data Attestation: I personally reviewed and interpreted this ECG as follows: (Rapid atrial rhythm 76 bpm first-degree AV block nonspecific ST changes no acute ST segment elevation) Discharge Plan Discharge Chief Complaint: Fall Clinical Impression: Fall from standing, T12 compression fracture, Acute UTI Patient Disposition: Admitted as Observation Time of Disposition Decision: 03:26 Condition: Good
[2025-02-10 00:59] LABS: Hematocrit 30.1 % (36.0-48.0); Hemoglobin 10.1 g/dL (12.0-16.0); Immature Granulocytes Abs Auto 0.01 10^3/uL (0.00-0.03); Immature Granulocytes Pct Auto 0.1 % (0.0-0.5); Lymphocytes Absolute Auto 1.0 10^3/uL (1.2-3.8); Mean Corpuscular HGB Conc 33.6 g/dL (29.9-35.2); Mean Corpuscular Hemoglobin 32.5 pg (26.7-34.0); Mean Corpuscular Volume 96.8 fL (81.0-99.0); Platelet Count 214 10^3/uL (150-450); Red Blood Count 3.11 10^6/uL (4.20-5.40); White Blood Count 7.0 10^3/uL (4.0-11.0)
[2025-02-10 01:03] LABS: Alanine Aminotransferase 19 U/L (14-59); Albumin Globulin Ratio 1.3; Albumin Level 3.6 g/dL (3.4-5.0); Alkaline Phosphatase 76 U/L (46-116); Anion Gap 12.2; Aspartate Amino Transferase 18 U/L (15-37); Blood Urea Nitrogen 19.0 mg/dL (7.0-18.0); Calcium 9.0 mg/dL (8.5-10.1); Carbon Dioxide 28.0 mmol/L (21.0-32.0); Chloride 103 mmol/L (98-107); Estimated GFR (African America 50 (>=60 mL/min/1.73m^2); Estimated GFR (Non-African Ame 41 (>=60 mL/min/1.73m^2); Globulin 2.8 g/dL; Glucose 134 mg/dL (74-106); Potassium 4.2 mmol/L (3.5-5.1); Sodium 139 mmol/L (136-145); Total Protein 6.4 g/dL (6.4-8.2)
[2025-02-10 03:02] LABS: Glucose Urine UA NEGATIVE (NEGATIVE)
[2025-02-10 03:08] LABS: Cast Seen? NONE SEEN #/LPF (NONE SEEN); Crystals Seen? Seen #/HPF (None Seen); Urine Culture Indicated YES-FRMC
--- NOTE | 2025-02-10 03:34 | ECG_ITS ---
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
[2025-02-10] MEDS: ACETAMINOPHEN 325 MG TABLET 650 MG PO (03:40)
--- NOTE | 2025-02-10 08:30 | CM.NOTE ---
Rounds made with Dr. Franco, discussed with pt reason for admission and plan of care. PT and OT will evaluate pt for discharge planning. Pt having underlying confusion at this time as to what has brought her into hospital. Updated SW and she will reach out to family after PT and OT to discuss discharge planning.
--- NOTE | 2025-02-10 08:51 | SWNOTE1 ---
SW and I met with pt in room and discussed how she is doing at home. I asked pt this and she voiced she is fine but she realizes she is getting old. Pt voiced she lives alone with 6 cats. I asked pt if she has any services coming in and she voiced just meals on wheels. SW did ask pt if there was a nurse or therapy coming in that we may have set up from her last hospital visit. Pt voiced there was a lady who came to home but she thinks she was from [facility]. SW asked pt if she used any DME, pt voiced a walker. SW asked pt if she had any support, pt voiced she has a sister that checks on her. Pt did repeat some information from the beginning of conversation. At this time OT came into room and SW let pt know we will be back after she does therapy. SW to follow as needed. SW looked in previous chart visit and looks like [facility] was set up at d/c. SW called [facility] and pt is currently active with them.
--- NOTE | 2025-02-10 10:26 | PM.HP ---
HPI H&P: HPI History of Present Illness Chief complaint: FALL, UTI, T-12 FRACTURE Narrative: Mrs. Mcintyre is an 89-year-old with no significant past medical history. Patient fell down. Her Apple watch sent an alarm. Her family came over and found her on the floor trying to get up. The patient was brought to the emergency room. Patient denies any significant injury. No head or neck trauma. Patient denies any chest or abdominal pain. She denies any back pain. No fever or chills. According to her family, the patient had fallen in the past. She had suffered rib pain to sacral fracture in the past. No focal weakness or numbness. No change in mental status. Opioid HPI Opioid Management Most Recent Pain and Opioid Data: Last Pain Scale 0 12/16/24, 08:36 Last Pain Assessment Today, 05:00 Last ORT Total Score 0 Today, 04:25 Last ORT Risk Category Low Risk Today, 04:25 Review of Systems ROS Status of ROS 10 or more systems reviewed and unremarkable except as noted in history and below PFSH PFS Medical History (Updated 02/10/25 @ 10:30 by Milad Franco MD) Coarse tremors ?G25.2 - Other specified forms of tremor (ICD-10) Finger wound, simple, open ?S61.209A - Unspecified open wound of unspecified finger without damage to nail, initial encounter (ICD-10) Fall ?W19.XXXA - Unspecified fall, initial encounter (ICD-10) Closed sacral fracture ?S32.10XA - Unspecified fracture of sacrum, initial encounter for closed fracture (ICD-10) Multiple fractures of ribs ?S22.49XA - Multiple fractures of ribs, unspecified side, initial encounter for closed fracture (ICD-10) Depression ?F32.A - Depression, unspecified (ICD-10) Hyperlipemia ?E78.5 - Hyperlipidemia, unspecified (ICD-10) Hypertension ?I10 - Essential (primary) hypertension (ICD-10) Surgical History (Updated 12/14/24 @ 15:38 by Soco Little) Hx of tonsillectomy ?Z90.89 - Acquired absence of other organs (ICD-10) H/O: hysterectomy ?Z90.710 - Acquired absence of both cervix and uterus (ICD-10) History of cholecystectomy ?Z90.49 - Acquired absence of other specified parts of digestive tract (ICD-10) Family History (Updated 02/10/25 @ 04:37 by Joy Hall) Grandmother Family history of cancer Social History (Updated 02/10/25 @ 04:38 by Joy Hall) Within the past year, how often did you have a drink containing alcohol: 2-4 times a month Within the past year, how often did you have six or more drinks on one occasion: never Smoking status: Never smoker Second hand tobacco smoke exposure: No Non-prescribed substance use: denies use 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 Known occupational exposures/hazards: No Highest level of school completed/degree received: high school graduate Do you want help with school or training: No Are you now , , , , never or living with a partner: In a typical week, how many times do you talk on the telephone with family, friends, or neighbors: once per week How often do you get together with friends or relatives: once per week How often do you attend holiness or yazdanism services: 4 or more times per year Little interest or pleasure in doing things: not at all Feeling down, depressed, or hopeless: not at all Feel stressed/tense/nervous/anxious/difficulty sleeping: not at all Due to disability, difficulty making decisions: No Do you think of yourself as: straight/heterosexual Gender Identity: female Meds Home Medications and Allergies Home Medications ?Medication ?Instructions ?Recorded ?Confirmed ?Type bupropion HCl 300 mg 24 hr tablet, 300 mg PO DAILY 12/13/24 02/10/25 History extended release diltiazem HCl 240 mg 240 mg PO DAILY 12/13/24 02/10/25 History capsule,extended release 24 hr duloxetine 60 mg capsule,delayed 60 mg PO DAILY 12/13/24 02/10/25 History release magnesium oxide 400 mg (241.3 mg 400 mg PO DAILY 12/13/24 02/10/25 History magnesium) tablet Allergies Allergy/AdvReac Type Severity Reaction Status Date / Time Penicillins Allergy Unknown rash Verified 12/13/24 19:26 gentamicin AdvReac Severe Dizziness Verified 12/14/24 15:46 Exam Narrative Exam Narrative: Awake and alert. Some memory loss. Some cognitive loss. Oriented to place and person. Cachectic and frail in appearance. Bitemporal muscle wasting. Upper and lower extremities muscle wasting atrophy. Loss of subcutaneous fat. Chest is clear, heart is regular. Abdomen soft, nontender. Extremities showed no edema. Osteoarthritis deformities. Surprisingly, patient does not have any tenderness over the spinal processes. Mild to moderate functional loss. Please refer to physical Occupational Therapy team note for details on functional status and treatment plan. Constitutional Vital Signs, click to edit/add: Last Vital Signs Temp 98.3 F 02/10/25 07:11 Pulse 75 02/10/25 07:11 Resp 18 02/10/25 07:11 BP 106/52 02/10/25 07:11 Pulse Ox 93 L 02/10/25 07:11 O2 Del Method Room Air 02/10/25 07:11 Results Labs Labs: Short CBC 02/10/25 Range/Units 00:12 WBC 7.0 (4.0-11.0) 10^3/uL Hgb 10.1 L (12.0-16.0) g/dL Hct 30.1 L (36.0-48.0) % Plt Count 214 (150-450) 10^3/uL BMP 02/10/25 00:12 Sodium 139 Potassium 4.2 Chloride 103 Carbon Dioxide 28.0 BUN 19.0 H Creatinine 1.24 H Glucose 134 H Calcium 9.0 Liver Function 02/10/25 Range/Units 00:12 Total Bilirubin 1.1 H (0.2-1.0) mg/dL AST 18 (15-37) U/L ALT 19 (14-59) U/L Alkaline Phosphatase 76 (46-116) U/L Albumin 3.6 (3.4-5.0) g/dL Urine 02/10/25 Range/Units 02:55 Urine Color Lt. orange (YELLOW) Urine Clarity Clear (CLEAR) Urine pH 6.0 (5.0-9.0) Ur Specific Coleman >=1.030 A (1.005-1.025) Urine Protein Trace (NEG/TRACE) mg/dL Urine Glucose (UA) Negative (NEGATIVE) mg/dL Assessment and Plan Assessment and Plan (1) Acute UTI: (2) T12 compression fracture: (3) Fall from standing: (4) CKD (chronic kidney disease): (5) Moderate protein-calorie malnutrition: (6) Multifactorial functional impairment: (7) Cognitive impairment: (8) Muscle wasting: (9) Cachexia: Plan Falls, functional impairment which is probably multifactorial secondary to muscle wasting, aging, osteoarthritis and deconditioning No 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 CT head is negative for acute intracranial process. Positive for brain atrophy and microvascular disease CT neck is negative for acute fracture CT lumbar positive for osteoarthritis and T12 fracture but the patient does not have pain in her back nor she does have any tenderness PT OT eval and treatment. Probable short-term skilled care. Cognitive impairment. Brain CT showed microvascular disease and brain atrophy. I suspect the patient has vascular dementia versus other type of neurodegenerative disorder. Consider the initiation of aspirin for secondary stroke prevention Moderate protein calorie mentation, muscle wasting, cachexia and frailty. I started patient on oral protein supplementation Patient may need to have additional workup investigation for weight loss to rule out underlying malignancy. This may include but not limited to EGD, colonoscopy, breast exam, mammography, pelvic exam and others. The yield of doing this kind of work at the age of 89 is of questionable value. UTI Urine culture is pending. Continue empiric antibiotic. T12 fracture seen on CT imaging. Patient does not have much tenderness or pain in that area. I suspect this may be subacute or chronic rather than acute. No neurological deficit. Suspect vitamin D deficiency and osteoporosis Requested vitamin D level . Patient may benefit from having bone scan to be done in the outpatient setting however the benefit and yield of initiation of bisphosphonate treatment at the age of 89 is of questionable value. Anemia, no evidence of acute blood loss. Patient will likely require to have anemia workup to be done in the outpatient setting to be handled by PCP in collaboration with other needed outpatient providers. This may include but not limited to EGD, colonoscopy, referral to see hematology and other needed age-appropriate cancer screening. CKD stage III, near baseline. Continue to watch. No need for investigation while inpatient. Social issues I met with her sister and [id number] to discuss her social issues. They feel that patient may not be safe to left alone. We will engage social work and case management to investigate and provide further recommendation Chronic medical conditions not listed above, incidental findings seen on labs and imaging. These would need to be addressed. Could be addressed when time and condition are appropriate. Could be addressed in the outpatient setting by PCP collaboration with other needed outpatient providers.
--- NOTE | 2025-02-10 10:33 | SWNOTE1 ---
IVETTE met with pt and pt's sister and brother in law in room to discuss dc needs. Pt's family had concerns of her returning home that were voiced to physician. SW did speak with them about therapy coming to work with her and to see what their recommendations are. Family and pt have voiced the doctor wants to keep her here for a few days. SW to check on this. SW to check therapy notes as well. IVETTE did speak with family about eventually pt may need to go to assisted living or detention care, but SW can not force patient to do this. SW did also express that Assisted Living and halfway care are both private pay. SW let them know that eventually pt would have to spend down and apply for Medicaid, pt's sister and brother in law voiced understanding. IVETTE did speak with pt and family about rehab and for Medicare to pay, pt would need a 3 day inpt stay, but not sure if she meets qualifications for inpt status. If she does not, then it would be out of pocket cost. Pt is agreeable to rehab, but worried about her kitties. SW to speak with physician. IVETTE sent Dr. Franco secure message in regards to pt.
[2025-02-10] MEDS: CEFUROXIME AXETIL 250 MG TABLET PO ×2 (11:09→21:14)
[2025-02-10] MEDS: ASPIRIN 81 MG TABLET.DR PO (11:09)
--- NOTE | 2025-02-10 12:04 | SWNOTE1 ---
IVETTE spoke to Dr. Franco, pt staying in observation status. IVETTE did update Dr. Franco, that pt is not able to pay out of pocket at this time for rehab. He did suggest discussing Medicaid. SW to speak with pt and family. SW stopped back in and let pt and family know that pt is staying in observation status, and at this time Medicare will not pay for rehab without 3 day inpt stay. They voiced understanding. SW did ask pt about her financial status. Pt voiced she does not have millions, but has some money right now. Pt does not want to pay out of pocket for rehab. Pt's brother in law did ask how much money it would be for a month at [facility], SW advised it could be $7,000-$10,000 per month. He asked if all facilities are around the same amount. SW did let him know they would be close, some could be a little cheaper. SW advised that assisted living could be cheaper. IVETTE advised that many facilities have a wait list for group home care and for assisted living and it may be beneficial to start making phone calls and advised that they may ask about financial situation. Some terminal operations manager care facilities do not take Medicaid. IVETTE provided pt/family with Medicaid yaneth. SW offered to help or fax in once completed, but they would need to know monthly income and when last date was received, etc. Pt voiced that she does feel old, several times, and that she is worried about having to go to long term and worried about her cats. SW expressed to pt and her sister/brother in law that there is likely going to come a time that she will not be safe at home and that it would be beneficial to start planning ahead now and to start making phone calls to facilities. Pt also did admit that she realizes she has some confusion as well and that she is getting older. SW did voice that at this time pt is staying at hospital for today and plan will be discharge home and resuming the home health. Pt voiced they have not come since November. IVETTE advised pt that SW did call and they are current with her. It is possible that she may have missed calls from the home health company. SW plans on resuming home health services. Pt and family in agreement. SW did also mention private caregivers and offered to bring a list in, but they did not want list at this time.
[2025-02-10] MEDS: ENSURE HP 237 ML LIQUID PO ×2 (12:58→21:14)
--- NOTE | 2025-02-10 15:23 | SWNOTE1 ---
Faxed pt updates to [facility].
[2025-02-11] VITALS (7 sets, daily range): BP systolic 110–151; BP diastolic 44–77; PULSE 75–85; TEMP 36.6–36.8; O2SAT 97–98
[2025-02-11 05:27] LABS: Hematocrit 27.9 % (36.0-48.0); Hemoglobin 9.5 g/dL (12.0-16.0); Mean Corpuscular HGB Conc 34.1 g/dL (29.9-35.2); Mean Corpuscular Hemoglobin 32.9 pg (26.7-34.0); Mean Corpuscular Volume 96.5 fL (81.0-99.0); Platelet Count 186 10^3/uL (150-450); Red Blood Count 2.89 10^6/uL (4.20-5.40); White Blood Count 6.7 10^3/uL (4.0-11.0)
[2025-02-11 05:40] LABS: Anion Gap 10.9; Blood Urea Nitrogen 19.0 mg/dL (7.0-18.0); Calcium 8.8 mg/dL (8.5-10.1); Carbon Dioxide 29.7 mmol/L (21.0-32.0); Chloride 108 mmol/L (98-107); Estimated GFR (African America >60 (>=60 mL/min/1.73m^2); Estimated GFR (Non-African Ame 58 (>=60 mL/min/1.73m^2); Glucose 103 mg/dL (74-106); Potassium 3.6 mmol/L (3.5-5.1); Sodium 145 mmol/L (136-145)
[2025-02-11] MEDS: ENSURE HP 237 ML LIQUID PO ×2 (08:30→20:54)
[2025-02-11] MEDS: ASPIRIN 81 MG TABLET.DR PO (08:30)
[2025-02-11] MEDS: CEFUROXIME AXETIL 250 MG TABLET PO ×2 (08:30→20:54)
--- NOTE | 2025-02-11 09:15 | P.PN_ITS ---
Progress Note: Subjective Subjective Interval history: Uneventful night. The patient denies any pain or discomfort. No chest pain. No abdominal pain. No extremities pain and discomfort other than the usual arthritis Exam Narrative Exam Narrative: Awake and alert. Some memory loss. Some cognitive loss. Oriented to place and person. Cachectic and frail in appearance. Bitemporal muscle wasting. Upper and lower extremities muscle wasting atrophy. Loss of subcutaneous fat. Chest is clear, heart is regular. Abdomen soft, nontender. Extremities showed no edema. Osteoarthritis deformities. Surprisingly, patient does not have any tenderness over the spinal processes. Mild to moderate functional loss. Please refer to physical Occupational Therapy team note for details on functional status and treatment plan. Constitutional Vital Signs, click to edit/add: Last Vital Signs Temp 97.8 F 02/11/25 07:31 Pulse 79 02/11/25 07:31 Resp 16 02/11/25 07:31 BP 137/72 02/11/25 07:31 Pulse Ox 97 02/11/25 07:31 O2 Del Method Room Air 02/11/25 07:31 Progress Note: Objective Labs Labs: Short CBC 02/11/25 Range/Units 05:02 WBC 6.7 (4.0-11.0) 10^3/uL Hgb 9.5 L (12.0-16.0) g/dL Hct 27.9 L (36.0-48.0) % Plt Count 186 (150-450) 10^3/uL BMP 02/11/25 05:02 Sodium 145 Potassium 3.6 Chloride 108 H Carbon Dioxide 29.7 BUN 19.0 H Creatinine 0.92 Glucose 103 Calcium 8.8 Progress Note: A&P Assessment and Plan (1) Acute UTI: (2) T12 compression fracture: (3) Fall from standing: (4) CKD (chronic kidney disease): (5) Moderate protein-calorie malnutrition: (6) Multifactorial functional impairment: (7) Cognitive impairment: (8) Muscle wasting: (9) Cachexia: Plan Falls, functional impairment which is probably multifactorial secondary to muscle wasting, aging, osteoarthritis and deconditioning 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 CT head is negative for acute intracranial process. Positive for brain atrophy and microvascular disease CT neck is negative for acute fracture CT lumbar positive for osteoarthritis and T12 fracture but the patient does not have pain in her back nor she does have any tenderness PT OT eval and treatment. Probable short-term skilled care. Patient does not meet inpatient criteria therefore Medicare would not approve for skilled facility. Patient does have the option to go to skilled facility [id number] payment. Patient and her sister stated that they do not have the financial resources to do so I discussed her care with manager social services. Application for Medicaid had been submitted. Patient and her family do not want assisted living at this time due to financial restraint. Patient wants to go home to be with her cat. Patient will have home health care and Meals [employer] Wheels. Patient will be monitored by her sister in addition to home health care agency. Cognitive impairment. Brain CT showed microvascular disease and brain atrophy. I suspect the patient has vascular dementia versus other type of neurodegenerative disorder. Consider the initiation of aspirin for secondary stroke prevention Moderate protein calorie mentation, muscle wasting, cachexia and frailty. I started patient on oral protein supplementation Patient may need to have additional workup investigation for weight loss to rule out underlying malignancy. This may include but not limited to EGD, colonoscopy, breast exam, mammography, pelvic exam and others. The yield of doing this kind of work at the age of 89 is of questionable value. UTI Urine culture is pending. Continue empiric antibiotic. T12 fracture seen on CT imaging. Patient does not have much tenderness or pain in that area. I suspect this may be subacute or chronic rather than acute. No neurological deficit. Suspect vitamin D deficiency and osteoporosis Requested vitamin D level. Surprisingly that came back within normal range. No strong indication for vitamin D supplementation . Patient may benefit from having bone scan to be done in the outpatient setting however the benefit and yield of initiation of bisphosphonate treatment at the age of 89 is of questionable value. Anemia, no evidence of acute blood loss. Patient will likely require to have anemia workup to be done in the outpatient setting to be handled by PCP in collaboration with other needed outpatient providers. This may include but not limited to EGD, colonoscopy, referral to see hematology and other needed age-appropriate cancer screening. CKD stage III, near baseline. Acute kidney failure had resolved Continue to watch. No need for investigation while inpatient. Chronic medical conditions not listed above, incidental findings seen on labs and imaging. These would need to be addressed. Could be addressed when time and condition are appropriate. Could be addressed in the outpatient setting by PCP collaboration with other needed outpatient providers.
--- NOTE | 2025-02-11 09:17 | SWNOTE1 ---
Medicare Outpatient Observation Notice reviewed and discussed with patient. Pt. verbalized understanding and signed the form. Original given to patient and copy placed in patient?s chart.
[2025-02-11] MEDS: MAGNESIUM OXIDE 400 MG TABLET PO (09:26)
[2025-02-11] MEDS: POTASSIUM CHLORIDE 10 MEQ ER TABLET 20 MEQ PO (09:26)
--- NOTE | 2025-02-11 09:34 | CM.NOTE ---
Rounds made with Dr. Franco. Continue with current plan of care. No discharge today.
--- NOTE | 2025-02-11 11:18 | REH.PTDLY ---
Physical Therapy Daily Note PT Daily Note/Assess Start: 02/10/25 09:53 Freq: Status: Active Protocol: Document 02/11/25 11:11 KSTEINLE (Rec: 02/11/25 11:18 KSTEINLE No Response) Physical Therapy Daily Note/Assessment Time In 10:17 Time Out 10:33 Subjective Pt more alert today, aware that she has been confused and understands why now. Denies any complaints of pain at this time. Therapeutic Activity 9 Minutes (minutes) Therapeutic Activity 1 Units Therapeutic Activity Instructed in sit to stand transfers from chair CGA Comments with cues for pt to stop upon standing to make sure she has her bearings. Gait training with RW CGA with several cues for pt to widen DANIELLE to prevent feet from touching. Cues to stay inside RW as she tries to walk along the outside when turning. Pt ambulated for 120 feet total, but needs assistance for safety. Neuromuscular 7 Reeducation Minutes (minutes) Neuromuscular 0 Reeducation Units Neuromuscular Static standing balance in rhomberg 30 secs EO with Reeducation mild sway. CGA with standing rhomberg with head turns as pt becomes unsteady and has LOB with movement. Arm raises 10x to 90 degrees flexion CGA as pt tends to lean slightly retro as she raises arms. Standing exs performed with constant CGA as pt tends to lean one direction or another pending ex being performed. Cues for smaller range to help maintain balance. Total Therapy 16 Minutes Total Physical 1 Therapy Units Daily Note Summary Pt still very unsteady with turns during gait training and standing balance exs. Constant cues to widen DANIELLE with gait to improve balance, pt is able to tell a difference when she is corrected and performs properly. Pt would benefit from rehab stay to improve stability to prevent future falls.
--- NOTE | 2025-02-11 15:01 | SWNOTE1 ---
IVETTE faxed physician note from today and PT/OT notes from today to [facility]. IVETTE advised [facility] that pt is in observation status.
[2025-02-11] MEDS: ACETAMINOPHEN 325 MG TABLET 650 MG PO (16:32)
[2025-02-12 05:05] VITALS: O2SAT 92
[2025-02-12 07:00] VITALS: BP 98/65; PULSE 105; TEMP 36.4; O2SAT 94
[2025-02-12 07:28] VITALS: PULSE 105
[2025-02-12] MEDS: MAGNESIUM OXIDE 400 MG TABLET PO (08:20)
[2025-02-12] MEDS: CEFUROXIME AXETIL 250 MG TABLET PO (08:20)
[2025-02-12] MEDS: ASPIRIN 81 MG TABLET.DR PO (08:20)
[2025-02-12] MEDS: ENSURE HP 237 ML LIQUID PO (08:21)
--- NOTE | 2025-02-12 08:50 | CM.NOTE ---
Rounds made with Dr. Franco, pt will discharge to home today. Pt will have [facility] and f/u with PCP as scheduled.
[2025-02-12 08:51] VITALS: PULSE 83; O2SAT 98
--- NOTE | 2025-02-12 10:12 | P.DS_ITS ---
DS: Providers Provider Date of admission: 02/10/25 04:12 Primary care physician: Idalmis Ybarra DO Consults: 02/10/25 03:34 Occupational Therapy Eval and Treat Routine Reason for consultation: Weakness Physical Therapy Eval and Treat Routine Reason for consultation: Weakness DS: Diagnosis Discharge Diagnosis (1) Acute UTI: (2) T12 compression fracture: (3) Fall from standing: (4) CKD (chronic kidney disease): (5) Moderate protein-calorie malnutrition: (6) Multifactorial functional impairment: (7) Cognitive impairment: (8) Muscle wasting: (9) Cachexia: Plan As listed above and others that are not listed DS: Summary Hospital Course Hospital Course: Mrs. Mcintyre is an 89-year-old female who was brought into the emergency room after she fell down. Falls, functional impairment which is probably multifactorial secondary to muscle wasting, aging, osteoarthritis and deconditioning No focal deficit to suggest primary [employer] injury or insult. CT head is negative for acute intracranial process. Positive for brain atrophy and microvascular disease CT neck is negative for acute fracture CT lumbar positive for osteoarthritis and T12 fracture but the patient does not have pain in her back nor she does have any tenderness X-ray of the pelvis is negative PT OT eval and treatment. Probable short-term skilled care. Patient does not meet inpatient criteria therefore Medicare would not approve for skilled facility. Patient does have the option to go to skilled facility [id number] payment. Patient and her sister stated that they do not have the financial resources to do so I discussed her care with rn social work. Application for Medicaid had been submitted. Patient and her family do not want assisted living at this time due to financial restraint. Patient wants to go home to be with her cat. Patient will have home health care and Meals on Wheels. Patient will be monitored by her sister in addition to home health care agency. Cognitive impairment. Brain CT showed microvascular disease and brain atrophy. I suspect the patient has vascular dementia versus other type of neurodegenerative disorder. Consider the initiation of aspirin for secondary stroke prevention Hypertension. Patient is on Cardizem CD to 40 mg daily Her blood pressure has been stable without BP meds Discontinue Cardizem as may be contributing to to her low blood pressure at home and increase risk of falls. Blood pressure monitoring to be handled in the outpatient setting by PCP. Consideration to restart blood pressure medication at small dose if her systolic is beating above 160 Depression and anxiety. Patient is on high dose of Wellbutrin 300 mg daily and Cymbalta 60 mg daily. May be too high dose of serotonin in the norepinephrine reuptake inhibitors. Discontinue Wellbutrin and keep her on Cymbalta. Consideration to wean her Cymbalta dose down to 20 mg daily slowly over the next several weeks in the outpatient setting by PCP Moderate protein calorie mentation, muscle wasting, cachexia and frailty. I started patient on oral protein supplementation Patient may need to have additional workup investigation for weight loss to rule out underlying malignancy. This may include but not limited to EGD, colonoscopy, breast exam, mammography, pelvic exam and others. The yield of doing this kind of work at the age of 89 is of questionable value. UTI Urine culture is pending. Continue empiric antibiotic. Final urine culture came back positive for skin contamination. Discontinue antibiotic T12 fracture seen on CT imaging. Patient does not have much tenderness or pain in that area. I suspect this may be subacute or chronic rather than acute. No neurological deficit. Suspect vitamin D deficiency and osteoporosis Requested vitamin D level. Surprisingly that came back within normal range. No strong indication for vitamin D supplementation . Patient may benefit from having bone scan to be done in the outpatient setting however the benefit and yield of initiation of bisphosphonate treatment at the age of 89 is of questionable value. Anemia, no evidence of acute blood loss. Patient will likely require to have anemia workup to be done in the outpatient setting to be handled by PCP in collaboration with other needed outpatient providers. This may include but not limited to EGD, colonoscopy, referral to see hematology and other needed age-appropriate cancer screening. CKD stage III, near baseline. Acute kidney failure had resolved Continue to watch. No need for investigation while inpatient. Chronic medical conditions not listed above, incidental findings seen on labs and imaging. These would need to be addressed. Could be addressed when time and condition are appropriate. Could be addressed in the outpatient setting by PCP collaboration with other needed outpatient providers. Patient has multiple complex medical issues as listed above and others that are not listed. All appear to be stable. I do not have any clear or strong clinical justification to extend inpatient hospitalization. Patient however will require close and frequent monitoring as well as additional work-up, investigation and therapeutic intervention that could take place from this point on post discharge. That is to prevent relapse, decompensation, rehospitalization and other medical implications. I instructed patient to ask her primary care doctor to obtain [facility] record entirely to address abnormalities seen on labs and imaging that I have and have not addressed during this hospitalization, follow-up on pending blood work, imaging and pathology is if available and to follow-up on needed medical care in the outpatient setting. Time Spent with Patient Time attestation: Total time spent providing and/or coordinating discharge services: Time spent: greater than 30 minutes Exam Narrative Exam Narrative: Awake and alert. Some memory loss. Some cognitive loss. Oriented to place and person. Cachectic and frail in appearance. Bitemporal muscle wasting. Upper and lower extremities muscle wasting atrophy. Loss of subcutaneous fat. Chest is clear, heart is regular. Abdomen soft, nontender. Extremities showed no edema. Osteoarthritis deformities. Surprisingly, patient does not have any tenderness over the spinal processes. Mild to moderate functional loss. Please refer to physical Occupational Therapy team note for details on functional status and treatment plan. No finding on exam of any dislocation or fracture. Patient is nontender palpating all of her extremities. Patient is nontender flexing and extending all of her joints. Constitutional Vital Signs, click to edit/add: Last Vital Signs Temp 97.6 F 02/12/25 07:00 Pulse 83 02/12/25 08:51 Resp 18 02/12/25 07:28 BP 98/65 02/12/25 07:00 Pulse Ox 98 02/12/25 08:51 O2 Del Method Room Air 02/12/25 08:51 DS: Data Data Completed and Pending Labs on day of discharge: Preliminary micro results at discharge 02/10/25 02:55 Urine Culture - Preliminary Urine,Clean Catch Pending - Specimen sent to [facility] Discharge Plan Discharge Disposition: Home Health Service Condition: Good Discharge Medications: New aspirin 81 mg Tablet,Delayed Release (Dr/Ec) 81 mg PO QD Qty: 60 2RF Continued duloxetine 60 mg capsule,delayed release(DR/EC) 60 mg PO DAILY magnesium oxide 400 mg (241.3 mg magnesium) tablet 400 mg PO DAILY Rx Instructions: with dinner Discontinued bupropion HCl 300 mg tablet extended release 24 hr 300 mg PO DAILY diltiazem HCl 240 mg capsule,extended release 24hr 240 mg PO DAILY Print Language: Hungarian Forms: Portal Instructions Follow Up Appointments: 02/23 @ 10:30am with Dr. Ybarra [phone]
[2025-02-12 10:44] VITALS: BP 155/85
--- NOTE | 2025-02-12 10:57 | REH.PTDLY ---
Physical Therapy Daily Note PT Daily Note/Assess Start: 02/10/25 09:53 Freq: Status: Active Protocol: Document 02/12/25 10:41 LEENA (Rec: 02/12/25 10:57 LEENA [id number]) Physical Therapy Daily Note/Assessment Time In 10:21 Time Out 10:40 Subjective Pt up in chair upon arrival, already worked with OT this morning. Possible DC today to home, pt unsure if she is getting home health or not. Therapeutic Exercise 8 Minutes (minutes) Therapeutic Exercise 0 Units Therapeutic Exercise Instructed in seated exs 10x ea with hip flex, hip abd, Treatment LAQ, and AP. Standing exs with UE support included HR, marching, hip flex, hip abd, and HS curl 10x ea. Therapeutic Activity 8 Minutes (minutes) Therapeutic Activity 1 Units Therapeutic Activity Pt Ind with sit to stand transfers. Pt drops blanket on Comments floor and able to bend over and pick it up SBA. Pt states she usually does not ambulate with any device. Trialed no device for 30 feet, but pt has 2 instances of unsteadiness needing CGA to recover. Pt given SC then and has improved balance, but does stagger 1x using SC to regain balance with gait training of 150 feet. Recommended to pt that she be using AD at home and in community. Neuromuscular 3 Reeducation Minutes (minutes) Neuromuscular 0 Reeducation Units Neuromuscular Instructed in static standing with no UE support 30 Reeducation secs, CROM 10x ea with head turns, arm raises 10x ea with pt being able to maintain balance. Total Therapy 19 Minutes Total Physical 1 Therapy Units Daily Note Summary Pt has 3 instances of instability with gait CGA for pt to correct with use of SC. Educated pt to use RW in community and to use RW or SC in the home for safety due to imbalance at times with gait to prevent falls. Pt has good static balance today with exs, but sways with dynamic balance. Nursing states plan is for pt to be DC to home today, told nursing pt would benefit from home health to ensure safety in the home.
--- NOTE | 2025-02-12 12:04 | SWNOTE1 ---
SW spoke with nurse and pt's step daughter in room and would like to speak with SW. SW stopped in room to discuss dc planning. Pt's step daughter is concerned about pt discharging home. SW did express that SW has spoke to pt, pt's sister, and pt's brother in law in regards to discharge planning. SW explained that pt is in observation status and at this time Medicare will not pay for rehab. SW also explained that was walking up and down hallway yesterday with nurses aide independently. SW let daughter in law know that SW can look in to and likely get pt in to a facility, but it would be penitentiary care or Assisted Living and this would be out of pocket expense. SW let her know the barrier to getting her to a facility is the financial aspect. SW also let her know that the pt has to agree as well. Step daughter did express to pt that they are worried about her returning home alone. Pt voiced that she is worried about her kitties at home and what will happen to them. Pt did agree to try going to a nursing facility for a short time to see if she likes it. The step daughter did mention the [facility] and that her other family member is over there. Pt voiced she wants to stay close as well. The step daughter asked the pt if she would like to call her grand daughter in law, the person that assists with finances, to discuss everything. She also offered to assist pt with calling her sister and her grandson. Pt in agreement. IVETTE will call over to the [facility] and speak with Giovanni in regards to patient. SW called and spoke to Giovanni and updated her on patient. Giovanni will come over around 1:00 to meet pt and discuss financial piece with pt/family. SW to update the nurse. Giovanni requested to have pt's face sheet, H&P, therapy notes, and med list sent over. This information was faxed over to [facility] to Giovanni.
--- NOTE | 2025-02-12 13:27 | SWNOTE1 ---
IVETTE stopped in and Dillon from [facility] in room discussing various placement options with pt and family.
--- NOTE | 2025-02-12 14:06 | SWNOTE1 ---
IVETTE received call from Giovanni at the [facility] and they are able to accept. Pt will be going on healthcare rehab side and they will give her some PT/OT. Pt will go there skilled, but will be paying out of pocket for this. [facility] can take her in about an hour. IVETTE updated nurse and doctor. Pt's step daughter will transport her over there. IVETTE faxed dc med rec and completed PASSR online.
--- NOTE | 2025-02-13 16:35 | DIETREC ---
Pt shows wt loss of 2.1 kg/4.2% since last admission 12/15/24. Her weight remains WNR per BMI 19.4; however, she is at risk for underweight if wt loss continues. PO intakes of regular diet in-house are variable, generally good. Supplement order for 237 mL Ensure High PRO BID, which pt accepts well. Intakes of meals and nutritional supplements meet her estimated nutrient requirements. Will continue to follow PRN.
--- NOTE | 2025-02-15 08:28 | PC.NURSE ---
It Sales Representative reviewed urine culture and gave to to Dr. Franco for further review. No new orders at this time.
== END 2025-02-12 15:29 ==
LOC: ER 02-10 03:26 → MS 02-10 04:16
PROVIDERS: Admitting Provider Internal Medicine; Emergency Provider Emergency Medicine; Visit Provider Internal Medicine
DX: N39.0 Urinary tract infection, site not specified (principal); M48.54XA Collapsed vertebra, not elsewhere classified, thoracic region, initial encounter for fracture; N18.9 Chronic kidney disease, unspecified; R64 Cachexia; M62.50 Muscle wasting and atrophy, not elsewhere classified, unspecified site; R26.81 Unsteadiness on feet; Z74.09 Other reduced mobility; M47.816 Spondylosis without myelopathy or radiculopathy, lumbar region; D64.9 Anemia, unspecified; S22.31XD Fracture of one rib, right side, subsequent encounter for fracture with routine healing; S32.10XD Unspecified fracture of sacrum, subsequent encounter for fracture with routine healing; W18.30XD Fall on same level, unspecified, subsequent encounter; Z91.81 History of falling; Z90.710 Acquired absence of both cervix and uterus; Z90.49 Acquired absence of other specified parts of digestive tract; G25.2 Other specified forms of tremor; G31.84 Mild cognitive impairment of uncertain or unknown etiology; N18.30 Chronic kidney disease, stage 3 unspecified; Z68.1 Body mass index [BMI] 19.9 or less, adult
CPT/HCPCS: 36415; 70450; 71045; 72125; 72131; 73502; 80048; 80053; 81001; 82306; 84484; 85025; 85027; 87086; 87420; 93005; 94761; 96365; 97162; 97165; 97530; 97535; 99285; G0378; J0696